=== PATIENT | male | born 1955 | race Caucasian/White ===

== ENCOUNTER 2020-05-18 12:43 | Emergency (ER) | payer OTHER, SELFPAY ==
[2020-05-18 12:57] VITALS: BP 185/94; PULSE 83; RESP 16; TEMP 35.9; O2SAT 99
--- NOTE | 2020-05-18 12:57 | ED.SKABFB ---
HPI - Skin/Abscess/Foreign Bdy General Chief complaint: Skin/Abscess/Foreign Body Stated complaint: knot on the back of neck Time Seen by Provider: 05/18/20 12:58 Source: patient and RN notes reviewed Mode of arrival: ambulatory Limitations: no limitations History of Present Illness HPI narrative: 65 year old male who presents to [facility] with complaints of red raised tender lesion to the back on his neck on the right side near his hair line for the past 4 days. Patient states that it started out small and has proceeded to enlarge and become red and tender, no drainage from site noted, tissue is semi firm and has increase pain with palpation. Patient denies any fever, chills or sweats, has applied ice and also taken some Tylenol for discomfort. MD complaint: lesion Onset (ago): day(s) (4) Location: neck Severity: moderate Severity scale (1-10): 4 Quality: aching Pain Consistency: constant Relieving factors: cold therapy and medication (Tylenol) Exacerbating factors: palpation and movement Context: none Associated symptoms: denies other symptoms Treatments prior to arrival: other (ice) Related Data Allergies Allergy/AdvReac Type Severity Reaction Status Date / Time No Known Allergies Allergy Verified 05/18/20 13:27 Review of Systems Review of Systems: Narrative: CONSTITUTIONAL: Denies fever, chills, or sweats. EYES: Denies visual changes, redness, or discharge. ENT: Denies rhinorrhea, congestion, sore throat, or otalgia. CARDIOVASCULAR: Denies chest pain, palpitations, or edema. RESPIRATORY: Denies cough or dyspnea. GASTROINTESTINAL: Denies abdominal pain, nausea, vomiting, or diarrhea. GENITOURINARY: Denies dysuria or hematuria. SKIN: Denies rash or itching.Red raised firm lesion to the back on his right neck for 4 days MUSCULOSKELETAL: Denies back pain, joint pain, or myalgia. NEUROLOGIC: Denies headache, numbness, or weakness. PSYCHIATRIC: Denies anxiety or depression. All systems reviewed & are unremarkable except as noted in HPI and below PMFSH Past Medical History Medical History (Updated 05/18/20 @ 15:13 by Melissa Wharton NP) No pertinent past medical history Surgical History Surgical History (Updated 05/18/20 @ 15:16 by Melissa Wharton NP) No pertinent past surgical history Social History Social History (Updated 05/18/20 @ 15:12 by Melissa Wharton NP) Smoking status: Never smoker Second hand tobacco smoke exposure: No Alcohol intake: never Substance use: never Living arrangements: with family Gender identity (if verbalized by the patient): Male Comments At time of signature, agree with nursing past medical, surgical, social history. There is no relevant family history pertinent to the presenting complaint Exam Narrative: Exam Narrative: GENERAL: Well-appearing, well-nourished, and in no acute distress. HEAD: Normocephalic, atraumatic. EYES: PERRLA and EOMI. ENT: Nares clear, no rhinorrhea or epistaxis. Mucous membranes moist. NECK: Supple.no lymphadenopathy CHEST: Clear to auscultation. No respiratory distress. HEART: Regular rate and rhythm. No murmur heard. Normal peripheral pulses. ABDOMEN: Soft, nontender, nondistended, normal active bowel sounds. EXTREMITIES: Normal range of motion. No edema. SKIN: Warm, dry, no rash. red raised area of tissue right posterior neck along hair line which measures 4cm X 3cm and is red and tender to palpation, no drainage noted, small center indentation noted with no scabbing or inflamed hair follicle,tissue firm without induration NEURO: No focal deficits. Alert and oriented x3. Course Vital Signs Vital signs: Vital Signs Temperature 35.9 C L 05/18/20 12:57 Pulse Rate 83 05/18/20 12:57 Respiratory Rate 16 05/18/20 12:57 Blood Pressure 185/94 H 05/18/20 12:57 Pulse Oximetry 99 05/18/20 12:57 Temperature 35.9 C L 05/18/20 12:57 Pulse Rate 83 05/18/20 12:57 Respiratory Rate 16 05/18/20 12:57 Blood Pressure 1
== END 2020-05-18 13:23 | disposition home or self-care (01) ==
PROVIDERS: Emergency Provider Registered Nurse
DX: L02.11 Cutaneous abscess of neck (principal)
CPT/HCPCS: 99213; G0463

== ENCOUNTER 2020-12-26 14:45 | Outpatient (CLI) | payer OTHER, SELFPAY ==
[2020-12-26 15:19] LABS: Alanine Aminotransferase 19 U/L (4-50); Albumin Level 4.4 g/dL (3.5-5.1); Alkaline Phosphatase 70 U/L (38-126); Anion Gap 7 mmol/L (8-16); Aspartate Amino Transferase 26 U/L (17-59); Bilirubin,Total 0.6 mg/dL (0.2-1.3); Blood Urea Nitrogen 22 mg/dL (9-20); Calcium 9.9 mg/dL (8.4-10.2); Carbon Dioxide 26 mmol/L (22-30); Chloride 106 mmol/L (98-107); Estimated Glomerular Filt Rate 47; Glucose 94 mg/dL (65-110); Potassium 4.5 mmol/L (3.4-5.0); Sodium 139 mmol/L (137-145)
[2020-12-26 15:39] LABS: Microalbumin Urine Random 20.1 mg/L (0-16.7)
[2020-12-26 15:40] LABS: Creatinine Urine 116.4 mg/dL; MALB Creatinine Ratio 17.3 mg/g (0-30)
== END 2020-12-26 14:46 | disposition home or self-care (01) ==
LOC: ANHLAB 14:48
PROVIDERS: PCP Internal Medicine; Visit Provider Internal Medicine
DX: I12.9 Hypertensive chronic kidney disease with stage 1 through stage 4 chronic kidney disease, or unspecified chronic kidney disease (principal); N18.9 Chronic kidney disease, unspecified
CPT/HCPCS: 36415; 80053; 82043; 84443

== ENCOUNTER → 2021-01-09 15:38 | Outpatient (CLI) | payer OTHER, SELFPAY ==
--- NOTE | ~2021-01-09 | US_ITS ---
EXAMINATION: US retroperitoneal comp DATE: 01/09/2021 15:56 INDICATION: Stage III chronic kidney disease. COMPARISON: None. FINDINGS: The right kidney measures 13.2 x 5.5 x 5.7 cm. The left kidney measures 10.4 x 5.6 x 5.1 cm. The kidn eys demonstrate normal echogenicity. Approximately 1 cm echogenic and shadowing calcification likely representing a renal stone at the lower pole of the left kidney. There is no hydronephrosis in either kidney. No stones identified. Diffuse mild bladder wall thickening likely due to partially decompre ssed state which limits evaluation. IMPRESSION: 1. Approximately 1 cm stone at the lower pole of the left kidney. Otherwise normal kidneys with no h ydronephrosis. 2. Diffuse mild bladder wall thickening likely due to decompressed state which limits evaluation. Reviewed, dictated and finalized at location B. IMPRESSION: 1. Approximately 1 cm stone at the lower pole of the left kidney. Otherwise no rmal kidneys with no hydronephrosis. 2. Diffuse mild bladder wall thickening likely due to decompressed state which limits evaluation.
== END ==
PROVIDERS: PCP Internal Medicine; Visit Provider Internal Medicine
DX: N18.31 Chronic kidney disease, stage 3a (principal)
CPT/HCPCS: 76770

== ENCOUNTER → 2023-01-23 14:51 | Outpatient (CLI) | payer OTHER, MEDICARE, SELFPAY ==
--- NOTE | ~2023-01-23 | XR_ITS ---
EXAMINATION: XR abdomen/kub 1V DATE: 01/23/2023 15:14 INDICATION: Unspecified abdominal pain. TECHNIQUE: A supine view of the abdomen on 2 radiographs was obtained. COMPARISON: CT abdomen and pelvis 09/30/2005 FINDINGS: There are no dilated loops of bowel. There are approximately 3 stones in right kidney measu ring up to 4 mm. There are 13 mm and 4 mm calcifications in the area of distal left ureter. IMPRESSION: 1. Normal bowel gas pattern. 2. Calcifications in the area of distal left ureter that may be ureteral stones. Consider noncontrast CT. 3. Right kidney stones. Reviewed, dictated and finalized at location E. IMPRESSION: 1. Normal bowel gas pattern. 2. Calcifications in the area of distal left ureter that may be ureteral stones . Consider noncontrast CT. 3. Right kidney stones.
--- NOTE | ~2023-01-23 | CT_ITS ---
Corrected Report Order # associated 01/24/2023 SLJ This report was recreated on 01/24/2023. Original report was signed by Edison Hope M.D. on 01/23/2023 15:43 CDT. EXAMINATION: CT abdomen pelvis wo con DATE: 01/23/2023 15:29 INDICATION: Abdominal pain. Hematuria. TECHNIQUE: Computed tomography (CT) of the abdomen and pelvis was performed without intravenous contrast. Automated exposure control and iterative reconstruction technique were employed. The dose-length product was 677.33 mGy- cm. COMPARISON: CT abdomen and pelvis 09/30/2005 FINDINGS: The visualized portions of the lung bases demonstrate mild atelectasis. No pleural effusion. The heart size is normal. No pericardial effusion. The liver, gallbladder, spleen, pancreas, and adrenal glands are normal. There are approximately 8 stones in right kidney measuring up to 5 mm. There is a 12 mm cyst in left kidney. There is moderate atrophy of left kidney. There is severe left hydronephrosis and hydroureter. There are 11 mm and 4 mm stones in distal left ureter. The prostate is mildly enlarged. There is prominent fat in left inguinal canal that may be a hernia. There is diverticulosis of the colon without evidence of diverticulitis. The appendix is normal. There is an umbilical hernia containing fat. There are no pathologically enlarged lymph nodes. There is no free intraperitoneal fluid. There is severe lower lumbar spondylosis. There is mild chronic anterior wedging of T12 vertebral body. IMPRESSION: 1. 11 mm and 4 mm stones in distal left ureter with severe left hydronephrosis and hydroureter and moderate left kidney atrophy. 2. Nonobstructing right kidney stones. Reviewed, dictated and finalized at location E. MTDD
== END ==
PROVIDERS: PCP Nurse Practitioner Family; Visit Provider Nurse Practitioner Family
DX: R10.9 Unspecified abdominal pain (principal); R39.9 Unspecified symptoms and signs involving the genitourinary system; N20.2 Calculus of kidney with calculus of ureter
CPT/HCPCS: 74018; 74176

== ENCOUNTER 2023-02-13 13:10 | Outpatient (CLI) | payer OTHER, MEDICARE, SELFPAY ==
--- NOTE | 2023-02-13 13:22 | ECG_ITS ---
Measurements Intervals Ord Rate: 73 P: 48 AL: 159 QRS: -12 QRSD: 151 T: 89 QT: 410 QTc: 452 Interpretive Statements SINUS RHYTHM LEFT BUNDLE BRANCH BLOCK ABNORMAL ECG NO PREVIOUS ECG AVAILABLE FOR COMPARISON Electronically Signed On 02-13-2023 13:31:26 CDT by Santos Kulkarni D.O.
[2023-02-13 13:49] LABS: Prothrombin Time 13.5 Seconds (11.1-14.7)
[2023-02-13 13:50] LABS: Anion Gap 4 mmol/L (8-16); Blood Urea Nitrogen 23 mg/dL (9-20); Calcium 9.3 mg/dL (8.4-10.2); Carbon Dioxide 31 mmol/L (22-30); Chloride 107 mmol/L (98-107); Estimated Glomerular Filt Rate 47; Glucose 86 mg/dL (65-110); Partial Thromboplastin Time 25.9 SECONDS (22.3-36.8); Sodium 142 mmol/L (137-145)
== END 2023-02-13 13:11 | disposition home or self-care (01) ==
PROVIDERS: Anesthesiology; PCP Family Medicine; Visit Provider Urology
DX: Z01.818 Encounter for other preprocedural examination (principal); I44.7 Left bundle-branch block, unspecified; R94.31 Abnormal electrocardiogram [ECG] [EKG]; I12.9 Hypertensive chronic kidney disease with stage 1 through stage 4 chronic kidney disease, or unspecified chronic kidney disease; N18.9 Chronic kidney disease, unspecified
CPT/HCPCS: 36415; 80048; 85610; 85730; 93005

== ENCOUNTER 2023-02-20 00:46 | Day surgery (SDC) | payer OTHER, MEDICARE, SELFPAY ==
[2023-02-12 14:57] VITALS: BMI 28.4
--- NOTE | 2023-02-12 15:15 | PC.NURSE ---
Report to the Outpatient Waiting Room, entrance under the green pavilion located off [facility], at time ___11:30AM____ on date __02/20/23 . Planned Procedure Time: __1:30PM . Time changes happen often and if your time is changed the preop area will call you the afternoon before. - You and your visitor will be asked to self-screen and do not enter if you have any COVID symptoms. - A mask is optional within the hospital at this time. Patients may have clear liquids (water, carbonated beverages, clear teas, apple juice) until 3 hours prior to surgery with a maximum of 20 ounces. - No food from midnight until time of surgery. Take the following medications with a SIP of water the morning of surgery: __NONE DO NOT STOP ANY OF YOUR OTHER PRESCRIPTION MEDICATIONS PRIOR TO SURGERY ?EXCEPT THE FOLLOWING Medications to discontinue per physician ___NONE Date to take last dose Please no make-up, nail divehi, hairspray, perfume, deodorant, or body powder the day of surgery. No jewelry (including any body piercings) or valuables the day of surgery, leave them at home. Please take a shower or bath the night before, or the morning of, surgery with an antibacterial soap. Wear comfortable, loose fitting clothing. Children are encouraged to wear pajamas. - Jewelry must be removed prior to entering the operating room. Rings and piercings that are not removed may be cut off. - The hospital will not accept responsibility for valuables. - Please leave all valuables, including medications, at home the day of surgery. If you are going home after surgery, a licensed star route mail driver must drive you home. - NO public transportation without another adult if you receive anesthesia. - We recommend that an adult stay with you for 24 hours following discharge. - We also recommend that you do not drive, make important decision, drink alcoholic beverages, or take any drugs that were not prescribed by your health care provider for at least 24 hours after your discharge time. Follow any additional instructions given to you from your surgeon. If you or anyone in your household have experienced Covid symptoms in the past week, please notify your surgeon or the nurse liaison at the phone number below for possible testing. Telephone instructions given to __PATIENT and asked if any additional questions and then verbalized understanding. Patient advised to call surgeon office or pre surgery nurse liaison [phone] if any additional questions.
[2023-02-20] VITALS (13 sets, daily range): BP systolic 134–156; BP diastolic 64–102; PULSE 65–88; RESP 16–24; TEMP 36.4–36.9; O2SAT 98–100
--- NOTE | ~2023-02-20 | XR_ITS ---
EXAMINATION: XR stent kub - surgery DATE: 02/20/2023 13:43 INDICATION: Stone extraction and left ureteral stent placement TECHNIQUE: 2 fluoroscopic images of the abdomen and pelvis were obtained during procedure performed mariely Banks. Radiologist was not present for the imaging or procedure. The amount of fluoroscopy nataly e used during this procedure was 0.5 minutes. COMPARISON: CT abdomen pelvis dated 01/23/2023 FINDINGS: There is a left internal ureteral stent with loops formed in the expected positions of the bladder an d left renal pelvis. Distal tip of a likely cystoscope is seen in the central pelvis on the second im age. IMPRESSION: 1. Left internal ureteral stent in expected position on the provided images. This is reportedly been removed during procedure. Correlate with procedure note for further detail. Reviewed, dictated and finalized at location A. IMPRESSION: 1. Left internal ureteral stent in expected position on the provided images. Th is is reportedly been removed during procedure. Correlate with procedure note f or further detail.
--- NOTE | 2023-02-20 06:17 | WPDHPUPDATE1 ---
History and Physical Update Update Date/Time: 02/20/23 06:17 History and Physical has been reviewed, including an updated exam of the patient. There are NO changes in the patient's condition. Risks, benefits, and alternatives have been discussed and questions answered. Patient agrees to proceed with procedure.
[2023-02-20] MEDS: LACTATED RINGERS 1,000 ML 30 ML IV CONT (11:21)
--- NOTE | 2023-02-20 11:34 | WPDANESEPPF ---
Anes - Initial Pre Proc Eval Procedure: Operation Date: 02/20/23 13:30 Proposed Procedures p Cystoscopy, Left Ureteroscopy, Left Retrograde Pyelogram, Possible Left Stone Extraction, Possible Left Stent Placement, Possible Holmium Laser - Gigi Banks MD Date/Time: 02/20/23 11:34 Surgeon: Giig Banks MD Pre Op Diagnosis: ureteral stone Patient Data Age: 67 Gender: M Height: 1.83 m Weight: 97.2 kg Last Vital Signs Temp 36.9 C 02/20/23 10:59 Pulse 88 02/20/23 10:59 Resp 20 02/20/23 10:59 BP 149/82 H 02/20/23 10:59 Pulse Ox 98 02/20/23 10:59 O2 Del Method Room Air 02/20/23 10:59 Allergies Allergy/AdvReac Type Severity Reaction Status Date / Time No Known Allergies Allergy Verified 02/20/23 10:58 Home Medications Medication Instructions Recorded Confirmed Type hydrocodone 5 mg-acetaminophen 325 1 tablet PO Q6H PRN pain #20 tabs 01/23/23 02/12/23 Rx mg tablet tamsulosin 0.4 mg capsule (Flomax) 0.4 mg PO QHS #14 caps 01/23/23 02/12/23 Rx losartan 50 mg tablet See Rx Instructions .Route 02/17/23 02/20/23 Rx .COMPLEX #90 tabs simvastatin 20 mg tablet See Rx Instructions .Route 02/17/23 02/20/23 Rx .COMPLEX #90 tabs Patient hx anesthesia problems: none Family hx anesthesia problems: none Results Review: All pre-operative results and documents have been reviewed as part of the pre-operative evaluation. [facility] Past Medical History Medical History (Updated 02/20/23 @ 11:34 by Sonido Lobo MD) COVID-19 vaccine series started Family History Family History Father Hypertension Dementia Sibling Hypertension Heart problem Social History Social History Social History: Smoking status: Never smoker Second hand tobacco smoke exposure: No Alcohol intake: never Substance use: never Substance use type: does not use Lack of Transportation: No Lack of Food: Never True Current Housing: I Have Housing Concerned About Future Housing: No Difficulty Paying Gas/Electric Bills: No Difficulty Paying for Meds: No Currently Unemployed: No Education: High School Diploma/GED Difficulty w/ Childcare or Family Care: No Living arrangements: with family Additional living arrangements comments: Occupation/Education: occupation Gender identity (if verbalized by the patient): Male Sexual Orientation (if Verbalized by the Patient): Straight or Heterosexual Spiritual care concerns: No Anes - Eval Final PreProcedure Day of Procedure 02/20/23 11:34 Patient weight: overweight Heart: regular rate and rhythm Lungs: clear to auscultation Airway: Mallampati scale class II Neurological: alert and oriented Last oral intake: >/= 8 hours ASA classification: III Emergent: no Anesthetic plan: proceed Anesthesia type and monitoring: general LMA and standard monitoring Results Review: All pre-operative results and documents have been reviewed as part of the pre-operative evaluation. Informed Consent: The patient's anesthetic plan and its attendant risks and benefits were discussed with the patient/family/POA. Questions were solicited and answers provided to the satisfaction of the patient/family/POA.
[2023-02-20] MEDS: ceFAZolin 2 GM/D5W 50 ML 2 GM/50 ML BAG IVPB (12:37)
[2023-02-20] MEDS: LIDOCAINE HCL 2% GEL UROJET 10 ML PKG MUCOUS MEM (12:50)
--- NOTE | 2023-02-20 13:57 | W.PM.PROC2 ---
Procedure Note - Detailed Date of Procedure 02/20/23 Pre-op Diagnosis Large left ureteral stone Post-op Diagnosis Same Procedure Performed Cystoscopy, left ureteroscopy with laser lithotripsy, stone extraction and stent placement Surgeon Gigi Banks MD Anesthesia General Description of Procedure patient is brought to the operative suite was prepped draped in routine sterile fashion while dorsal lithotomy position after the uneventful induction of a general anesthetic. Cystoscopy is undertaken with a 19 F rigid cystoscope. He has moderate lateral lobe hyperplasia with a moderate-sized median lobe. Bladder was slightly trabeculated. No intravesical foreign body neoplasm. Again seen fluoroscopy he has a very large, 15 mm triangular shaped stone impacted in his left intramural ureter. This makes placement of a ureteral guidewire very challenging and not possible until I 1st started the fracture the stone with a 272 micron holmium laser fiber. Once I could identify a more proximal lumen of the ureter I placed a 0.035 in glidewire. I then completed laser lithotripsy with a semi-rigid ureteral scope and holmium laser. The ureteral orifice was very edematous making re-intubation with ureteral scope challenging. After 4 or 5 passes and extracting the largest of the fragmented pieces I opted simply place a 6 F variable length ureteral stent and see if the remaining pieces passed spontaneously. Patient tolerated the procedure well was taken recovery room good condition Drains Yes Packing No Pathology Yes Complications No immediate complications Condition Stable
--- NOTE | 2023-02-20 15:22 | SUR.PHASEII ---
1440 Urine output bloody with clots. Dr. Banks notified at bedside.
[2023-02-20] MEDS: LACTATED RINGERS 1,000 ML 150 ML IV CONT (15:57)
--- NOTE | 2023-02-20 16:29 | SUR.PHASEII ---
1620 Urine output 125 still bloody with small clots. Dr. Banks notified and at bedside. Pt on bag of LR.
--- NOTE | 2023-02-20 16:34 | SUR.PHASEII ---
Bladder scan showed 40ml of urine.
--- NOTE | 2023-02-20 17:05 | SUR.PHASEII ---
DR. OCASIO SPOKE WITH PATIENT AND LOUIE'D FOR PATIENT TO GO HOME.
== END 2023-02-20 17:13 | disposition home or self-care (01) ==
PROVIDERS: PCP Family Medicine; Visit Provider Urology
PROC: (CPT 52352; principal; 2023-02-20 13:30)
DX: N20.1 Calculus of ureter (principal)
CPT/HCPCS: 52356; 36415; 80048; 82365; 85610; 85730; 88300; 93005; C1769; C2617; J0690; J1100; J1885; J2250; J2405; J2704; J3010; J7120

== ENCOUNTER 2023-07-18 09:07 | Outpatient (CLI) | payer OTHER, MEDICARE, SELFPAY ==
--- NOTE | ~2023-07-18 | CT_ITS ---
EXAMINATION: CT abdomen pelvis wo con DATE: 07/18/2023 09:22 INDICATION: Unspecified abdominal pain. Right flank pain. TECHNIQUE: Computed tomography (CT) of the abdomen and pelvis was performed without intravenous contr ast. Automated exposure control and iterative reconstruction technique were employed. The dose-length product was 808.76 mGy-cm. COMPARISON: 01/23/2023 FINDINGS: Mild dependent atelectasis in the bilateral lower lobes with small pneumatocele in the left lower lob e. Heart size is normal. No pericardial or pleural effusion. Small sliding-type hiatal hernia. Again seen are couple low-attenuation likely hepatic cyst. Gallbladder, spleen, pancreas and bilateral adre nal glands are normal. Unchanged moderate atrophy of the left kidney with 12 mm exophytic cyst at the upper pole. Bilateral nephrolithiasis. This includes a 5 mm obstructing stone at the distal most right ureter within 1 cm o f the ureterovesicular junction which results in mild right hydroureteronephrosis. There are also two , 1 mm stones in the distalmost left ureter with mild left hydronephrosis. There are at least 7 addit ional stones in the right kidney, the largest measuring 5-6 mm. Fat-containing umbilical hernia. Moderate diverticulosis with sigmoid and distal descending colon pre dominance and without adjacent comparison to suggest diverticulitis. Small bowel and appendix are nor mal. Bladder is unremarkable. Prostatomegaly. No free intraperitoneal gas or fluid. No pathologically enlarged abdominal or pelvic lymphadenopathy. Severe spondylosis at the lumbosacral junction with mi ld spondylosis more cephalad lumbar and lower thoracic spine. Chronic mild likely physiologic anterio r wedging at T11 and T12. IMPRESSION: 1. Bilateral urolithiasis with obstructing 5 mm stone at the distalmost right ureter with mild right hydroureteronephrosis and a couple likely at least partially obstructing 1 mm stones at the distalmos t left ureter with mild left hydronephrosis. Reviewed, dictated and finalized at location B. E[employer] SUPERVISOR IMPRESSION: 1. Bilateral urolithiasis with obstructing 5 mm stone at the distalmost right u reter with mild right hydroureteronephrosis and a couple likely at least partia lly obstructing 1 mm stones at the distalmost left ureter with mild left hydron ephrosis.
== END 2023-07-18 09:08 ==
LOC: MICIMG 09:08
PROVIDERS: PCP Family Medicine; Visit Provider Nurse Practitioner Family
DX: R10.9 Unspecified abdominal pain (principal); N20.0 Calculus of kidney
CPT/HCPCS: 74176

== ENCOUNTER 2023-07-19 08:30 | Outpatient (CLI) | payer OTHER, MEDICARE, SELFPAY ==
[2023-07-19 08:50] LABS: Appearance Urine Clear (Clear); Bilirubin Urine Negative (Negative); Blood Urine Negative (Negative); Color Urine Yellow (Yellow); Glucose Urine UA Negative (Negative); Ketones Urine Negative (Negative); Leukocyte Esterase Ur Negative LEU/UL (NEGATIVE); Nitrate Urine Negative (Negative); Protein Urine Negative (Negative); Specific Grav Ur 1.011 (1.001-1.035); Urobilinogen Urine 0.2 mg/dL (<2.0); pH Urine 5.5 (5.0-9.0)
[2023-07-19 09:06] LABS: Add Urine Microscopic? NO
== END 2023-07-19 08:31 | disposition home or self-care (01) ==
PROVIDERS: PCP Family Medicine; Visit Provider Nurse Practitioner Family
DX: R30.0 Dysuria (principal)
CPT/HCPCS: 81003; 87086

== ENCOUNTER 2024-01-02 01:55 | Day surgery (SDC) | payer OTHER, MEDICARE, SELFPAY ==
[2023-12-16 13:34] VITALS: BMI 27.6
[2024-01-02 09:09] VITALS: BP 151/86; PULSE 88; RESP 20; TEMP 36.6; O2SAT 99; BMI 27.9
--- NOTE | 2024-01-02 09:11 | P.PNAN_ITS ---
Anes - Initial Pre Proc Eval Procedure: Operation Date: 01/02/24 10:30 Proposed Procedures p Colonoscopy - Gelacio Bello MD Date/Time: 01/02/24 09:11 Surgeon: Gelacio Bello MD Pre Op Diagnosis: Other fecal abnormalities Patient Data Age: 68 Gender: M Height: 1.83 m Weight: 93.5 kg Last Vital Signs Temp 36.6 C 01/02/24 09:09 Pulse 88 01/02/24 09:09 Resp 20 01/02/24 09:09 BP 151/86 H 01/02/24 09:09 Pulse Ox 99 01/02/24 09:09 O2 Del Method Room Air 01/02/24 09:09 Allergies Allergy/AdvReac Type Severity Reaction Status Date / Time No Known Allergies Allergy Verified 01/02/24 09:08 Home Medications Medication Instructions Recorded Confirmed Type colchicine 0.6 mg tablet 0.6 mg PO DAILY #90 tabs 10/26/23 01/02/24 Rx losartan 50 mg tablet See Rx Instructions .Route 11/14/23 01/02/24 Rx .COMPLEX #90 tabs simvastatin 20 mg tablet See Rx Instructions .Route 12/15/23 01/02/24 Rx .COMPLEX #90 tabs Patient hx anesthesia problems: none Family hx anesthesia problems: none Results Review: All pre-operative results and documents have been reviewed as part of the pre- operative evaluation. [facility] Past Medical History Medical History (Updated 01/02/24 @ 09:12 by Sonido Lobo MD) Back pain Benign essential HTN CKD (chronic kidney disease) Dyslipidemia Gout Overweight (BMI 25.0-29.9) Family History Family History Father Hypertension Dementia Sibling Hypertension Heart problem Social History Social History Social History: Smoking status: Never smoker Second hand tobacco smoke exposure: No Alcohol intake: current Substance use: never Substance use type: does not use Lack of Transportation: No Lack of Food: Never True Current Housing: I Have Housing Concerned About Future Housing: No Difficulty Paying Gas/Electric Bills: No Difficulty Paying for Meds: No Currently Unemployed: No Education: High School Diploma/GED Difficulty w/ Childcare or Family Care: No Living arrangements: with roommate(s) Additional living arrangements comments: Occupation/Education: occupation Gender identity (if verbalized by the patient): Male Sexual Orientation (if Verbalized by the Patient): Straight or Heterosexual Spiritual care concerns: No Anes - Eval Final PreProcedure Day of Procedure 01/02/24 09:11 Patient weight: overweight Heart: regular rate and rhythm Lungs: clear to auscultation Airway: Mallampati scale class II Neurological: alert and oriented Last oral intake: >/= 8 hours ASA classification: III Emergent: no Anesthetic plan: proceed Anesthesia type and monitoring: general GIVS and standard monitoring Results Review: All pre-operative results and documents have been reviewed as part of the pre- operative evaluation. Informed Consent: The patient's anesthetic plan and its attendant risks and benefits were discussed with the patient/family/POA. Questions were solicited and answers provided to the satisfaction of the patient/family/POA.
--- NOTE | 2024-01-02 09:15 | PM.HPGS ---
History of Present Illness History of Present Illness Consent: Risks, benefits, and alternatives have been discussed and questions answered. Patient agrees to proceed with procedure. Chief complaint: Other fecal abnormalities Narrative: Jurgen Lewis is a 68 year old male here for first colonoscopy, + cologuard Review of Systems Review of Systems: All systems reviewed & are unremarkable except as noted in HPI and below PMFSH Past Medical History Medical History (Updated 01/02/24 @ 09:12 by Sonido Lobo MD) Back pain Benign essential HTN CKD (chronic kidney disease) Dyslipidemia Gout Overweight (BMI 25.0-29.9) Family History Family History Father Hypertension Dementia Sibling Hypertension Heart problem Social History Social History Social History: Smoking status: Never smoker Second hand tobacco smoke exposure: No Alcohol intake: current Substance use: never Substance use type: does not use Lack of Transportation: No Lack of Food: Never True Current Housing: I Have Housing Concerned About Future Housing: No Difficulty Paying Gas/Electric Bills: No Difficulty Paying for Meds: No Currently Unemployed: No Education: High School Diploma/GED Difficulty w/ Childcare or Family Care: No Living arrangements: with roommate(s) Additional living arrangements comments: Occupation/Education: occupation Gender identity (if verbalized by the patient): Male Sexual Orientation (if Verbalized by the Patient): Straight or Heterosexual Spiritual care concerns: No Meds Home Medications and Allergies Home Medications Medication Instructions Recorded Confirmed Type colchicine 0.6 mg tablet 0.6 mg PO DAILY #90 tabs 10/26/23 01/02/24 Rx losartan 50 mg tablet See Rx Instructions .Route 11/14/23 01/02/24 Rx .COMPLEX #90 tabs simvastatin 20 mg tablet See Rx Instructions .Route 12/15/23 01/02/24 Rx .COMPLEX #90 tabs Allergies Allergy/AdvReac Type Severity Reaction Status Date / Time No Known Allergies Allergy Verified 01/02/24 09:08 Vital Signs Vital Signs - 24 hr 01/02/24 09:09 Temperature 98 F Pulse Rate 88 Respiratory Rate 20 Blood Pressure 151/86 H Pulse Oximetry 99 Oxygen Delivery Room Air Exam Const: General: comfortable and no acute distress HENMT: Face/Nose/Sinus: Normal nares present Eyes: General: appearance normal, both eyes and all related structures Neck: Neck: no JVD Resp: Auscultation: clear to auscultation bilaterally Cardio: Rate: regular rate Rhythm: regular rhythm GI: Inspection: non-distended GI Palp: Yes Soft to palpation Skin: General skin exam: normal color Neuro: General: gait normal Speech: normal speech Extrem: General: normal to inspection Psych: Mental Status: mental status grossly normal Assessment and Plan Assessment and plan (1) Positive colorectal cancer screening using Cologuard test: Code(s): R19.5 - Other fecal abnormalities Status: Acute Assessment and Plan: colonoscopy
[2024-01-02] MEDS: LACTATED RINGERS 1,000 ML 150 ML IV CONT (09:16)
[2024-01-02 09:34] VITALS: BP 130/73; PULSE 86; RESP 21; O2SAT 95
[2024-01-02 09:44] VITALS: BP 116/81; PULSE 84; RESP 18; O2SAT 97
[2024-01-02 09:54] VITALS: BP 134/81; PULSE 67; RESP 15; O2SAT 97
== END 2024-01-02 10:05 | disposition home or self-care (01) ==
PROVIDERS: PCP Family Medicine; Visit Provider Internal Medicine Gastroenterology
PROC: 0DJD8ZZ Inspection of Lower Intestinal Tract, Via Natural or Artificial Opening Endoscopic (ICD-10-PCS; CPT 45378; principal; 2024-01-02 10:30)
DX: R19.5 Other fecal abnormalities (principal); D12.4 Benign neoplasm of descending colon; K57.30 Diverticulosis of large intestine without perforation or abscess without bleeding; K64.8 Other hemorrhoids; N18.9 Chronic kidney disease, unspecified; I12.9 Hypertensive chronic kidney disease with stage 1 through stage 4 chronic kidney disease, or unspecified chronic kidney disease; E78.5 Hyperlipidemia, unspecified
CPT/HCPCS: 45385; 88305; J2704; J7120

== ENCOUNTER 2024-06-28 09:38 | Observation (INO) | payer MEDICARE, SELFPAY ==
[2024-06-28] VITALS (23 sets, daily range): BP systolic 96–143; BP diastolic 50–88; PULSE 89–112; RESP 13–27; TEMP 36.2–37.2; O2SAT 93–100
--- NOTE | ~2024-06-28 | XR_ITS ---
EXAMINATION: XR chest 2V DATE: 06/28/2024 10:25 INDICATION: Chest pain TECHNIQUE: PA and lateral views of the chest were obtained. COMPARISON: None FINDINGS: The lungs are clear with no focal airspace opacities, pulmonary edema, pleural effusion or pneumothor ax. The cardiomediastinal silhouette is normal. Visualized bones and soft tissues are unremarkable. IMPRESSION: 1. No acute cardiopulmonary disease. Reviewed, dictated and finalized at location A. L SERVICES SUPERVISOR
--- NOTE | 2024-06-28 09:39 | ECG_ITS ---
Test Date: 2024-06-28 09:42:17 Measurements Intervals [place] Rate: 107 P: 43 [place]: 147 QRS: -11 QRSD: 139 T: 114 QT: 351 QTc: 470 Interpretive Statements SINUS TACHYCARDIA LEFT BUNDLE BRANCH BLOCK ABNORMAL ECG No previous ECG available for comparison Electronically Signed On 06-28-2024 09:57:54 BUTTON MAKER AND INSTALLER by Santos Kulkarni D.O.
[2024-06-28] MEDS: ASPIRIN 81 MG CHEWABLE TABLET 324 MG PO (09:58)
[2024-06-28 10:02] LABS: Basophils Percent Auto 0.1 % (0.2-1.2); Eosinophils Absolute Auto 0.2 K/mm3 (0-0.3); Eosinophils Percent Auto 2.2 % (0-4.4); Hematocrit 44.4 % (42.0-52.0); Immature Granulocyte Absolute 0.05 K/mm3 (0.00-0.031); Immature Granulocyte Percent A 0.5 % (0-0.5); Mean Corpuscular HGB Conc 33.8 g/dl (32-36); Mean Corpuscular Hemoglobin 29.4 pg (26-34); Mean Corpuscular Volume 86.9 fl (80-100); Mean Platelet Volume 8.8 fl (7.4-10.4); Monocytes Absolute Auto 0.5 K/mm3 (0.1-0.6); Monocytes Percent Auto 5.2 % (2.6-8.5); Neutrophils Absolute Auto 8.7 K/mm3 (1.3-6.7); Platelet Count Result 174 k/mm3 (150-375); Red Blood Count 5.11 M/mm3 (4.6-6.20); Red Cell Distribution Width 13.2 % (11.5-14.5); White Blood Count 9.9 K/mm3 (4.5-10.0)
[2024-06-28 10:11] LABS: Alanine Aminotransferase 41 U/L (6-50); Albumin Level 4.1 g/dL (3.5-5.1); Alkaline Phosphatase 94 U/L (38-126); Anion Gap 9 mmol/L (4-12); Aspartate Amino Transferase 41 U/L (17-59); Bilirubin,Total 0.7 mg/dL (0.2-1.3); Blood Urea Nitrogen 22 mg/dL (9-20); Carbon Dioxide 26 mmol/L (22-30); Chloride 107 mmol/L (98-107); Estimated CRCL calculation 56 ml/min; Estimated Glomerular Filt Rate 58; Glucose 116 mg/dL (65-110); Lipase 84 U/L (23-300); Potassium 4.2 mmol/L (3.4-5.0); Sodium 142 mmol/L (137-145)
--- NOTE | 2024-06-28 10:16 | ED_ITS ---
HPI - Chest Pain General Chief Complaint: Chest Pain <Carolin Schreiber PA-C - Last Filed: 06/28/24 19:09> Stated Complaint: chest pain since 8am <Carolin Schreiber PA-C - Last Filed: 06/28/24 19:09> Time Seen by Provider: 06/28/24 10:03 <Carolin Schreiber PA-C - Last Filed: 06/28/24 19:09> Source: patient <Carolin Schreiber PA-C - Last Filed: 06/28/24 19:09> Mode of arrival: ambulatory <Carolin Schreiber PA-C - Last Filed: 06/28/24 19:09> Limitations: no limitations <Carolin Schreiber PA-C - Last Filed: 06/28/24 19:09> History of Present Illness HPI narrative: This is a 69-year-old male that presents to the emergency department for left-sided chest pain. Ongoing over the last couple of hours. The pain has been fairly constant, but intensity varying. Reports associated nausea. No history of CAD. He does report family history of [place]. He does not believe he has had a stress test. Denies shortness of breath, lower extremity edema. <Carolin Schreiber PA-C - Last Filed: 06/28/24 19:09> Related Data Allergies/Adverse Reactions: Allergies Allergy/AdvReac Type Severity Reaction Status Date / Time No Known Allergies Allergy Verified 06/28/24 10:01 <Carolin Schreiber PA-C - Last Filed: 06/28/24 19:09> Review of Systems 2 Review of Systems: CONSTITUTIONAL: Denies fever CARDIOVASCULAR: Reports chest pain. Denies palpitations, or edema. RESPIRATORY: Denies dyspnea. GASTROINTESTINAL: Reports nausea <Carolin Schreiber PA-C - Last Filed: 06/28/24 19:09> All systems reviewed & are unremarkable except as noted in HPI and below < Carolin Schreiber PA-C - Last Filed: 06/28/24 19:09> PMFSH Past Medical History Medical History: Medical History Left bundle branch block Vitamin D deficiency Kidney stones Chronic kidney disease, stage 3 Benign essential hypertension Gout Overweight (BMI 25.0-29.9) Dyslipidemia <Carolin Schreiber PA-C - Last Filed: 06/28/24 19:09> Surgical History Surgical History: Surgical History History of lithotripsy History of cystoscopy History of colonoscopy with polypectomy (12/2023) <Carolin Schreiber PA-C - Last Filed: 06/28/24 19:09> Family History Family History: Family History Father Hypertension Dementia Sibling Hypertension Heart problem <Carolin Schreiber PA-C - Last Filed: 06/28/24 19:09> Social History Social History: Social History (Updated 06/28/24 @ 19:36 by Tracy Ocasio PA-C) Social History: Surrogate medical decision maker: Galilea Lewis, spouse. Code status: Full code. Smoking status: Never smoker Second hand tobacco smoke exposure: No Alcohol intake: never Substance use: never Substance use type: does not use Do You Feel Safe in your Home?: Yes Lack of Transportation: No Lack of Food: Never True Current Housing: I Have Housing Concerned About Future Housing: No Difficulty Paying Gas/Electric Bills: No Difficulty Paying for Meds: No Currently Unemployed: No Education: High School Diploma/GED Difficulty w/ Childcare or Family Care: No Living arrangements: with family Additional living arrangements comments: Lives with in [place]. Occupation/Education: occupation Additional occupation/education comments: Retired from working in IT at [email or web address]. Spiritual care concerns: No <Carolin Schreiber PA-C - Last Filed: 06/28/24 19:09> Exam 2 Narrative: GENERAL: Uncomfortable, well-nourished, and in no acute distress. HEAD: Normocephalic, atraumatic. EYES: EOMI. NECK: Supple. No adenopathy or masses. No JVD CHEST: Clear to auscultation. No respiratory distress. No wheezes rales or rhonchi HEART: Regular rate and rhythm. No murmur heard. Normal peripheral pulses. ABDOMEN: Soft, nontender, nondistended, normal active bowel sounds. EXTREMITIES: Normal range of motion. No edema. SKIN: Warm, dry, no rash. NEURO: No focal deficits. Alert and oriented x3. PSYCH: Normal mood and affect <Carolin Schreiber PA-C - Last Filed: 06/28/24 19:09> Course Course Emergency Course: Patient and family updated on workup and recommendation for admission < Carolin Schreiber PA-C - Last Filed: 06/28/24 19:09> COMMUNITY HEALTH OUTREACH WORKER/PA Physician Supervision For this patient encounter, I reviewed the COMMUNITY HEALTH OUTREACH WORKER or PA documentation, treatment plan, and medical decision making; and I had [id number] time with this patient. <Dillan Apodaca MD - Last Filed: 06/28/24 19:38> Consultations Consultation #1: Spoke with hospitalist about patient and workup who accepts admission < Carolin Schreiber PA-C - Last Filed: 06/28/24 19:09> Date: 06/28/24 <Carolin Schreiber PA-C - Last Filed: 06/28/24 19:09> Consultation #2: Spoke with cardiology who will consult <Carolin Schreiber PA-C - Last Filed: 06/28/24 19:09> Date: 06/28/24 <Carolin Schreiber PA-C - Last Filed: 06/28/24 19:09> Vital Signs Vital signs: Vital Signs Temperature 98.8 F 06/28/24 09:46 Pulse Rate 112 H 06/28/24 09:46 Respiratory Rate 20 06/28/24 09:46 Blood Pressure 128/86 06/28/24 09:46 Pulse Oximetry 100 06/28/24 09:46 Oxygen Delivery Room Air 06/28/24 09:46 Temperature 98.8 F 06/28/24 09:46 Pulse Rate 96 06/28/24 19:15 Respiratory Rate 18 06/28/24 19:15 Blood Pressure 124/64 06/28/24 19:15 Pulse Oximetry 98 06/28/24 19:15 Oxygen Delivery Room Air 06/28/24 19:15 <Carolin Schreiber PA-C - Last Filed: 06/28/24 19:09> Vital Signs Temperature 98.8 F 06/28/24 09:46 Pulse Rate 112 H 06/28/24 09:46 Respiratory Rate 20 06/28/24 09:46 Blood Pressure 128/86 06/28/24 09:46 Pulse Oximetry 100 06/28/24 09:46 Oxygen Delivery Room Air 06/28/24 09:46 Temperature 98.8 F 06/28/24 09:46 Pulse Rate 96 06/28/24 19:15 Respiratory Rate 18 06/28/24 19:15 Blood Pressure 124/64 06/28/24 19:15 Pulse Oximetry 98 06/28/24 19:15 Oxygen Delivery Room Air 06/28/24 19:15 <Dillan Apodaca MD - Last Filed: 06/28/24 19:38> MDM - Chest Pain MDM Narrative Medical decision making narrative: Patient presents the emergency department for chest pain ongoing since this morning. Tachycardic upon arrival, this improved with management pain. CBC and metabolic panel without concerning findings. EKG shows a left bundle branch block, which is chronic for patient. His baseline and 3 hour troponin are negative. D-dimer is not elevated. Chest x-ray without acute cardiopulmonary abnormality. His heart score is 6. Will consult cardiology and hospitalist for admission for further evaluation <Carolin Schreiber PA-C - Last Filed: 06/28/24 19:09> Differential Diagnosis Differential diagnosis: Likely stable angina, unstable angina pectoris, atypical chest pain, st elevation myocardial infarction, costochondritis and other (PE) <Carolin Schreiber PA-C - Last Filed: 06/28/24 19:09> Lab Data Attestation: I reviewed the patient's lab results. <Carolin Schreiber PA-C - Last Filed: 06/28/24 19:09> Result diagrams: 06/28/24 09:52 06/28/24 09:52 <VIOLET Mckeon Last Filed: 06/28/24 19:09> Labs: Lab Results 06/28/24 Range/Units 09:52 WBC 9.9 (4.5-10.0) K/mm3 RBC 5.11 (4.6-6.20) M/mm3 Hgb 15.0 (14.0-18.0) g/dL Hct 44.4 (42.0-52.0) % MCV 86.9 (80-100) fl MCH 29.4 (26-34) pg MCHC 33.8 (32-36) g/dl RDW 13.2 (11.5-14.5) % Plt Count 174 (150-375) k/mm3 MPV 8.8 (7.4-10.4) fl Immature Gran % (Auto) 0.5 (0-0.5) % Neut % (Auto) 88.0 H (45.5-73.1) % Lymph % (Auto) 4.0 L (18.3-44.2) % [place] % (Auto) 5.2 (2.6-8.5) % Eos % (Auto) 2.2 (0-4.4) % Baso % (Auto) 0.1 L (0.2-1.2) % Lymph # (Auto) 0.40 L (0.9-3.2) K/mm3 [place] # (Auto) 0.5 (0.1-0.6) K/mm3 Eos # (Auto) 0.2 (0-0.3) K/mm3 Baso # (Auto) 0.0 (0.0-0.1) K/mm3 Abs Immat Gran (auto) 0.05 H (0.00-0.031) K/mm3 Absolute Neuts (auto) 8.7 H (1.3-6.7) K/mm3 Absolute Nucleated RBC 0.000 (0.0-0.012) K/mm3 Nucleated RBC % 0.0 (0.0-0.2) % PT 13.1 (11.1-14.7) Seconds INR 1.0 APTT 25.5 (22.3-36.8) Seconds D-Dimer 0.44 (<0.48) ug/mL Sodium 142 (137-145) mmol/L Potassium 4.2 (3.4-5.0) mmol/L Chloride 107 (98-107) mmol/L Carbon Dioxide 26 (22-30) mmol/L Anion Gap 9 (4-12) mmol/L BUN 22 H (9-20) mg/dL Creatinine 1.25 (0.7-1.3) mg/dL Estim Creat Clear Calc 56 ml/min Estimated GFR 58 L (59 - ) Glucose 116 H (65-110) mg/dL Calcium 9.0 (8.4-10.2) mg/dL Total Bilirubin 0.7 (0.2-1.3) mg/dL AST 41 (17-59) U/L ALT 41 (6-50) U/L Alkaline Phosphatase 94 (38-126) U/L Troponin I < 0.012 (0.000-0.034) ng/mL Total Protein 7.0 (6.3-8.2) g/dL Albumin 4.1 (3.5-5.1) g/dL Lipase 84 (23-300) U/L <Carolin Schreiber PA-C - Last Filed: 06/28/24 19:09> Lab Results 06/28/24 Range/Units 09:52 WBC 9.9 (4.5-10.0) K/mm3 RBC 5.11 (4.6-6.20) M/mm3 Hgb 15.0 (14.0-18.0) g/dL Hct 44.4 (42.0-52.0) % MCV 86.9 (80-100) fl MCH 29.4 (26-34) pg MCHC 33.8 (32-36) g/dl RDW 13.2 (11.5-14.5) % Plt Count 174 (150-375) k/mm3 MPV 8.8 (7.4-10.4) fl Immature Gran % (Auto) 0.5 (0-0.5) % Neut % (Auto) 88.0 H (45.5-73.1) % Lymph % (Auto) 4.0 L (18.3-44.2) % [place] % (Auto) 5.2 (2.6-8.5) % Eos % (Auto) 2.2 (0-4.4) % Baso % (Auto) 0.1 L (0.2-1.2) % Lymph # (Auto) 0.40 L (0.9-3.2) K/mm3 [place] # (Auto) 0.5 (0.1-0.6) K/mm3 Eos # (Auto) 0.2 (0-0.3) K/mm3 Baso # (Auto) 0.0 (0.0-0.1) K/mm3 Abs Immat Gran (auto) 0.05 H (0.00-0.031) K/mm3 Absolute Neuts (auto) 8.7 H (1.3-6.7) K/mm3 Absolute Nucleated RBC 0.000 (0.0-0.012) K/mm3 Nucleated RBC % 0.0 (0.0-0.2) % PT 13.1 (11.1-14.7) Seconds INR 1.0 APTT 25.5 (22.3-36.8) Seconds D-Dimer 0.44 (<0.48) ug/mL Sodium 142 (137-145) mmol/L Potassium 4.2 (3.4-5.0) mmol/L Chloride 107 (98-107) mmol/L Carbon Dioxide 26 (22-30) mmol/L Anion Gap 9 (4-12) mmol/L BUN 22 H (9-20) mg/dL Creatinine 1.25 (0.7-1.3) mg/dL Estim Creat Clear Calc 56 ml/min Estimated GFR 58 L (59 - ) Glucose 116 H (65-110) mg/dL Calcium 9.0 (8.4-10.2) mg/dL Total Bilirubin 0.7 (0.2-1.3) mg/dL AST 41 (17-59) U/L ALT 41 (6-50) U/L Alkaline Phosphatase 94 (38-126) U/L Troponin I < 0.012 (0.000-0.034) ng/mL Total Protein 7.0 (6.3-8.2) g/dL Albumin 4.1 (3.5-5.1) g/dL Lipase 84 (23-300) U/L <Dillan Apodaca MD - Last Filed: 06/28/24 19:38> Imaging Data Radiologist's impression: ITS Impressions Chest X-Ray 06/28/24 10:29 IMPRESSION: 1. No acute cardiopulmonary disease. <Carolin Schreiber PA-C - Last Filed: 06/28/24 19:09> ECG Data EKG #1: ECG completion date: 06/28/24 <Carolin Schreiber PA-C - Last Filed: 06/28/24 19:09> EKG Interpretation: tachycardia, sinus rhythm, LBBB and no acute changes (compared to EKG 2020) <Carolin Schreiber PA-C - Last Filed: 06/28/24 19:09> Critical Care Time Critical Care Time Critical Care Time: No <Carolin Schreiber PA-C - Last Filed: 06/28/24 19:09> Discharge Plan Discharge Clinical Impression: Chest pain Qualifiers: Chest pain type: unspecified Qualified Code(s): R07.9 - Chest pain, unspecified <Carolin Schreiber PA-C - Last Filed: 06/28/24 19:09> Patient Disposition: Still a Patient <Carolin Schreiber PA-C - Last Filed: 06/28/24 19:09> Condition: Stable <Carolin Schreiber PA-C - Last Filed: 06/28/24 19:09> Quality HEART score for chest pain patients History: moderately suspicious <Carolin Schreiber PA-C - Last Filed: 06/28/24 19:09> ECG: non specific repolarization disturbance/LBTB/PM <Carolin Schreiber PA-C - Last Filed: 06/28/24 19:09> Age: > or = to 65 years <Carolin Schreiber PA-C - Last Filed: 06/28/24 19:09> Risk factors: > or = to 3 risk factors of atherosclerotic disease <Carolin Schreiber PA-C - Last Filed: 06/28/24 19:09> Troponin: < or = to 1x normal limit <Carolin Schreiber PA-C - Last Filed: 06/28/24 19:09> Heart score: 6 <Carolin Schreiber PA-C - Last Filed: 06/28/24 19:09> 6 <Dillan Apodaca MD - Last Filed: 06/28/24 19:38>
[2024-06-28 10:23] LABS: Troponin I < 0.012 ng/mL (0.000-0.034)
[2024-06-28 10:26] LABS: Prothrombin Time 13.1 Seconds (11.1-14.7)
[2024-06-28] MEDS: ONDANSETRON INJ 4 MG/2 ML VIAL IV PUSH ×2 (10:26→21:42)
[2024-06-28] MEDS: MORPHINE SULFATE (*CRX) 4 MG/ML INJ IV PUSH (10:26)
[2024-06-28 10:27] LABS: Partial Thromboplastin Time 25.5 Seconds (22.3-36.8)
[2024-06-28 11:08] LABS: D Dimer 0.44 ug/mL (<0.48)
--- NOTE | 2024-06-28 12:51 | ECG_ITS ---
Test Date: 2024-06-28 12:57:10 Measurements Intervals [place] Rate: 107 P: 41 [place]: 155 QRS: -10 QRSD: 138 T: 118 QT: 357 QTc: 478 Interpretive Statements SINUS TACHYCARDIA LEFT BUNDLE BRANCH BLOCK ABNORMAL ECG Compared to ECG 06/28/2024 09:42:17 No significant changes Electronically Signed On 06-28-2024 13:02:48 CHIEF ACCOUNTING OFFICER by Santos Kulkarni D.O.
--- NOTE | 2024-06-28 13:00 | P.HP_ITS ---
H&P: HPI History of Present Illness Date/Time: 06/28/24 13:00 Chief Complaint: Chest pain. Narrative: This is a very pleasant 69-year-old male hypertension, hyperlipidemia, chronic kidney disease stage 3, and gout who presented to the emergency department via private vehicle with complaints of chest pain. The patient provides the following history. He started a walking program last month and he has been walki ng 5 miles most days of the week. The last few times he has been out walking he has noticed pain in his left arm towards the end of the walk (from the shoulder to the elbow) which would persisted until he got home and rested for a brief period of time. This morning simply while lying in bed he developed pain that felt similar however it was situated more so in the left anterior chest with occasional radiation into the left shoulder associated with nausea. It did seem to be a bit worse with movement of the left shoulder. He syncope, near-syncope, sweats, vomiting, pleuritic pain, and shortness of breath. He has not had any recent falls or injuries and has no known shoulder pathology. In the ED: Vital signs on arrival include a temperature of 98.8?, blood pressure 120/86, pulse 112, respiratory rate 20, SpO2 100% on room air. Labs were significant for a BUN of 22, creatinine 1.25, glucose 116, troponin less than 0.012. Chest x-ray showed no acute cardiopulmonary disease. EKG showed sinus tachycardia with a left bundle branch block which is not a new finding. He was given morphine 4 mg IV and aspirin 324 mg p.o. and he is being admitted in this setting for close monitoring and Cardiology consultation. Review of Systems Review of Systems: 12 systems were reviewed and are negativ e except for as per HPI. [facility] Past Medical History Medical History Left bundle branch block Vitamin D deficiency Kidney stones Chronic kidney disease, stage 3 Benign essential hypertension Gout Overweight (BMI 25.0-29.9) Dyslipidemia Surgical History Surgical History History of lithotripsy History of cystoscopy History of colonoscopy with polypectomy (12/2023) Family History Family History Father Hypertension Dementia Sibling Hypertension Heart problem Social History Social History (Updated 06/28/24 @ 19:36 by Tracy Ocasio PA-C) Social History: Surrogate medical decision maker: Galilea Lewis, spouse. Code status: Full code. Smoking status: Never smoker Second hand tobacco smoke exposure: No Alcohol intake: never Substance use: never Substance use type: does not use Do You Feel Safe in your Home?: Yes Lack of Transportation: No Lack of Food: Never True Current Housing: I Have Housing Concerned About Future Housing: No Difficulty Paying Gas/Electric Bills: No Difficulty Paying for Meds: No Currently Unemployed: No Education: High School Diploma/GED Difficulty w/ Childcare or Family Care: No Living arrangements: with family Additional living arrangements comments: Lives with in [place]. Occupation/Education: occupation Additional occupation/education comments: Retired from working in IT at [employer] Spiritual care concerns: No Meds Home Medications and Allergies Home Medications ?Medication ?Instructions ?Recorded ?Confirmed ?Type simvastatin 20 mg tablet See Rx Instructions .Route 02/12/24 06/28/24 Rx .COMPLEX #90 tabs allopurinol 100 mg tablet 100 mg PO DAILY #90 tabs 05/03/24 06/28/24 Rx cholecalciferol (vitamin D3) 1,250 1,250 mcg PO WEEKLY #14 tabs 05/05/24 06/28/24 Rx mcg (50,000 unit) tablet ferrous sulfate 325 mg (65 mg 325 mg PO DAILY #90 tabs 05/05/24 06/28/24 Rx iron) tablet,delayed release losartan 50 mg tablet See Rx Instructions .Route 05/10/24 06/28/24 Rx .COMPLEX #90 tabs Allergies Allergy/AdvReac Type Severity Reaction Status Date / Time No Known Allergies Allergy Verified 06/28/24 10:01 Vital Signs Vital Signs - 24 hr 06/28/24 09:46 06/28/24 10:26 06/28/24 11:00 Temperature 98.8 F Pulse Rate 112 H 107 H 102 H Respiratory Rate 20 25 H 15 Blood Pressure 128/86 143/84 H 138/88 Pulse Oximetry 100 96 94 Oxygen Delivery Room Air 06/28/24 12:56 Temperature Pulse Rate 108 H Respiratory Rate 26 H Blood Pressure 133/88 Pulse Oximetry 94 Oxygen Delivery Exam Narrative: General: Well-developed male sitting up in bed in no acute distress. Weight: 100.5 kg. BMI: 30.0. HEENT: Normocephalic, atraumatic. PERRL, EOMI. Sclera anicteric. Oral mucosa moist. Oropharynx clear. Neck: Supple. Respiratory: Lungs are clear to auscultation bilaterally. Cardiovascular: Regular rate and rhythm with S1-S2. Chest: No tenderness to palpation over the chest wall. Mild tenderness to palpation over the top of the left shoulder. Gastrointestinal: Abdomen is soft, nontender, and nondistended with positive bowel sounds. Skin: Warm and dry. No rash or lesions on limited exam. Extremities: No cyanosis, clubbing, or edema. Radial and pedal pulses intact. Neurological: Alert. Cranial nerves 2-12 are grossly intact. No gross focal deficits to casual conversation. Psychiatric: Pleasant and cooperative with normal mood and affect. Judgment and insight intact. H&P: Results Labs Labs: Short CBC 06/28/24 Range/Units 09:52 WBC 9.9 (4.5-10.0) K/mm3 Hgb 15.0 (14.0-18.0) g/dL Hct 44.4 (42.0-52.0) % Plt Count 174 (150-375) k/mm3 BMP 06/28/24 09:52 Sodium 142 Potassium 4.2 Chloride 107 Carbon Dioxide 26 BUN 22 H Creatinine 1.25 Glucose 116 H Calcium 9.0 Cardiac Enzymes 06/28/24 Range/Units 09:52 Troponin I < 0.012 (0.000-0.034) ng/mL Liver Function 06/28/24 Range/Units 09:52 Total Bilirubin 0.7 (0.2-1.3) mg/dL AST 41 (17-59) U/L ALT 41 (6-50) U/L Alkaline Phosphatase 94 (38-126) U/L Albumin 4.1 (3.5-5.1) g/dL Assessment and Plan Assessment and plan (1) Chest pain: Code(s): R07.9 - Chest pain, unspecified Status: Acute (2) Left bundle branch block: Code(s): I44.7 - Left bundle-branch block, unspecified Status: Acute (3) Benign essential hypertension: Code(s): I10 - Essential (primary) hypertension Status: Acute (4) Chronic kidney disease, stage 3: Code(s): N18.30 - Chronic kidney disease, stage 3 unspecified Status: Acute (5) Dyslipidemia: Code(s): E78.5 - Hyperlipidemia, unspecified Status: Acute Plan The patient presented to the emergency department for evaluation of chest pain radiating to the left shoulder as detailed in HPI. Labs, imaging, EKG, and all reports were personally reviewed. Initial troponin was normal and EKG did not show any new changes but he does have a chronic left bundle-branch block dating back to at least 2020. PE is unlikely and history is not consistent with GI etiology. There could be a musculoskeletal component by history however given his risk factors, coronary artery disease needs to be ruled out. He is being admitted to the IMU in cardiology has been consulted. It is my understanding that plans are to take the patient to the labor representative. Blood pressures were reviewed and they have been stable. Renal function is stable compared to previous labs. His home medications will be reviewed and resumed as appropriate. Quality VTE Prophylaxis VTE prophylaxis: mechanical ordered The patient has been admitted under observation status. Hospitalist [facility] Advance Care Plan I have confirmed that the patient's Advanced Care Plan is present, code status is documented, or surrogate decision maker is listed in patient medical record.: Yes Medication Reconciliation I have utilized all available resources to obtain, update and review the patients current medications (includes all prescriptions, OTC, herbals, cannabis, and nutritional supplements).: Yes
[2024-06-28 13:42] LABS: Troponin I < 0.012 ng/mL (0.000-0.034)
--- NOTE | 2024-06-28 13:47 | ADMGEN ---
This patient, Jurgen Lewis, was admitted to Virtual Bed IMU-3. Patient/family oriented to hospital policies and general routines including ID bracelet, bed and alarms, visiting hours, pain management, procedures, bathroom and other care routines, personal items, smoking policy, room service/diet, and visiting hours. Information on how to activate the Rapid Response Team has been discussed. Patient/Family are encouraged to report perceived risks to care and to ask questions if they do not understand what they are told or what they should do.
--- NOTE | 2024-06-28 14:50 | P.CONCA_ITS ---
Assessment and Plan Assessment and plan (1) Chest pain: Code(s): R07.9 - Chest pain, unspecified Status: Acute (2) LBBB (left bundle branch block): Code(s): I44.7 - Left bundle-branch block, unspecified Status: Acute (3) Benign essential HTN: Code(s): I10 - Essential (primary) hypertension Status: Acute (4) Dyslipidemia: Code(s): E78.5 - Hyperlipidemia, unspecified Status: Acute Plan 69-year-old man with hypertension and hyperlipidemia presented with chest pain Chest pain -possibly unstable angina with persistent chest discomfort in setting of sinus tachycardia and left bundle branch block -aspirin 324 mg and would recommend left heart cardiac catheterization given persistent chest discomfort to define his coronary anatomy with possible PCI -start metoprolol tartrate 25 mg p.o. b.i.d. -which changes simvastatin to atorvastatin 40 mg every evening Hypertension -continue home meds Hyperlipidemia -continue atorvastatin 40 mg every evening History of Present Illness History of Present Illness Consult date/time: 06/28/24 14:50 Requesting physician: Tracy Ocasio PA-C Reason For Visit: chest pain Narrative: 69-year-old man with hypertension and hyperlipidemia presented with chest pain. He had left shoulder and arm pain with exertion such as ambulation that started on Friday. He developed the left shoulder/arm pain while ambulating his typical 5 mi walk daily and was able to push through and complete his 5 miles that day. When he would went home he sat down and rested and the shoulder/arm pain slowly resolved. This morning he woke up with left-sided chest discomfort that feels like a hard pain that continues to persist since 8:00 a.m. this morning. In the emergency room he was given morphine with some relief of his chest discomfort and he felt some lightheadedness while walking to and from the bathroom. Has the morphine wore off the chest discomfort returned. Denies any shortness of breath, orthopnea, syncope. He is usually an active person who walks 5 miles and plays golf. Review of Systems 2 Cardiovascular: Cardiovascular: Reports as per HPI Respiratory: Respiratory: Reports as per HPI [facility] Past Medical History Medical History (Updated 06/28/24 @ 14:17 by Tracy Ocasio PA-C) Left bundle branch block Vitamin D deficiency Kidney stones Chronic kidney disease, stage 3 Benign essential hypertension Gout Overweight (BMI 25.0-29.9) Dyslipidemia Surgical History Surgical History (Updated 06/28/24 @ 14:18 by Tracy Ocasio PA-C) History of lithotripsy History of cystoscopy History of colonoscopy with polypectomy (12/2023) Family History Family History Father Hypertension Dementia Sibling Hypertension Heart problem Social History Social History Social History: Smoking status: Never smoker Second hand tobacco smoke exposure: No Alcohol intake: never Substance use: never Substance use type: does not use Do You Feel Safe in your Home?: Yes Lack of Transportation: No Lack of Food: Never True Current Housing: I Have Housing Concerned About Future Housing: No Difficulty Paying Gas/Electric Bills: No Difficulty Paying for Meds: No Currently Unemployed: No Education: High School Diploma/GED Difficulty w/ Childcare or Family Care: No Living arrangements: with roommate(s) Additional living arrangements comments: Occupation/Education: occupation Gender identity (if verbalized by the patient): Male Sexual Orientation (if Verbalized by the Patient): Straight or Heterosexual Spiritual care concerns: No Meds Home Medications and Allergies Home Medications ?Medication ?Instructions ?Recorded ?Confirmed ?Type simvastatin 20 mg tablet See Rx Instructions .Route 02/12/24 06/28/24 Rx .COMPLEX #90 tabs allopurinol 100 mg tablet 100 mg PO DAILY #90 tabs 05/03/24 06/28/24 Rx cholecalciferol (vitamin D3) 1,250 1,250 mcg PO WEEKLY #14 tabs 05/05/24 06/28/24 Rx mcg (50,000 unit) tablet ferrous sulfate 325 mg (65 mg 325 mg PO DAILY #90 tabs 05/05/24 06/28/24 Rx iron) tablet,delayed release losartan 50 mg tablet See Rx Instructions .Route 05/10/24 06/28/24 Rx .COMPLEX #90 tabs Allergies Allergy/AdvReac Type Severity Reaction Status Date / Time No Known Allergies Allergy Verified 06/28/24 10:01 Vital Signs Vital Signs - 24 hr 06/28/24 09:46 06/28/24 10:26 06/28/24 11:00 Temperature 37.1 C Pulse Rate 112 H 107 H 102 H Respiratory Rate 20 25 H 15 Blood Pressure 128/86 143/84 H 138/88 Pulse Oximetry 100 96 94 Oxygen Delivery Room Air 06/28/24 12:56 Temperature Pulse Rate 108 H Respiratory Rate 26 H Blood Pressure 133/88 Pulse Oximetry 94 Oxygen Delivery Exam 2 Const: General: uncomfortable HENMT: Mouth: Yes moist mucous membranes Eyes: EOM: EOMs intact bilaterally Neck: Neck: no JVD Resp: Effort & Inspection: normal respiratory effort Auscultation: clear to auscultation bilaterally Cardio: Rate: tachycardic Rhythm: regular rhythm Extrem: General: no pedal edema Results Labs and Meds 06/28/24 09:52 06/28/24 09:52 Lab results: Cardiac Enzymes 06/28/24 06/28/24 Range/Units 09:52 12:58 AST 41 (17-59) U/L Troponin I < 0.012 < 0.012 (0.000-0.034) ng/mL Coagulation 06/28/24 Range/Units 09:52 PT 13.1 (11.1-14.7) Seconds APTT 25.5 (22.3-36.8) Seconds CBC 06/28/24 Range/Units 09:52 WBC 9.9 (4.5-10.0) K/mm3 RBC 5.11 (4.6-6.20) M/mm3 Hgb 15.0 (14.0-18.0) g/dL Hct 44.4 (42.0-52.0) % Plt Count 174 (150-375) k/mm3 Lymph # (Auto) 0.40 L (0.9-3.2) K/mm3 [place] # (Auto) 0.5 (0.1-0.6) K/mm3 Eos # (Auto) 0.2 (0-0.3) K/mm3 Baso # (Auto) 0.0 (0.0-0.1) K/mm3 Comprehensive Metabolic Panel 06/28/24 Range/Units 09:52 Sodium 142 (137-145) mmol/L Potassium 4.2 (3.4-5.0) mmol/L Chloride 107 (98-107) mmol/L Carbon Dioxide 26 (22-30) mmol/L BUN 22 H (9-20) mg/dL Creatinine 1.25 (0.7-1.3) mg/dL Glucose 116 H (65-110) mg/dL Calcium 9.0 (8.4-10.2) mg/dL AST 41 (17-59) U/L ALT 41 (6-50) U/L Alkaline Phosphatase 94 (38-126) U/L Total Protein 7.0 (6.3-8.2) g/dL Albumin 4.1 (3.5-5.1) g/dL Patient Weight 06/28/24 23:59 Weight 100.5 kg
--- NOTE | 2024-06-28 14:57 | WPDHPUPDATE1 ---
History and Physical Update Update Date/Time: 06/28/24 14:57 History and Physical has been reviewed, including an updated exam of the patient. There are NO changes in the patient's condition. Risks, benefits, and alternatives have been discussed and questions answered. Patient agrees to proceed with procedure.
--- NOTE | 2024-06-28 14:57 | WPDMODSED ---
Moderate Sedation Note-Pt Data Patient Data Allergies Allergy/AdvReac Type Severity Reaction Status Date / Time No Known Allergies Allergy Verified 06/28/24 10:01 Home Medications ?Medication ?Instructions ?Recorded ?Confirmed ?Type simvastatin 20 mg tablet See Rx Instructions .Route 02/12/24 06/28/24 Rx .COMPLEX #90 tabs allopurinol 100 mg tablet 100 mg PO DAILY #90 tabs 05/03/24 06/28/24 Rx cholecalciferol (vitamin D3) 1,250 1,250 mcg PO WEEKLY #14 tabs 05/05/24 06/28/24 Rx mcg (50,000 unit) tablet ferrous sulfate 325 mg (65 mg 325 mg PO DAILY #90 tabs 05/05/24 06/28/24 Rx iron) tablet,delayed release losartan 50 mg tablet See Rx Instructions .Route 05/10/24 06/28/24 Rx .COMPLEX #90 tabs Current Medications: Active Medications Aspirin (Aspirin 81 Mg Enteric Tablet) 81 mg PO QAM ONEIL Atorvastatin Calcium (Atorvastatin 40 Mg Tablet) 40 mg PO EVENING ONEIL Metoprolol Tartrate (Metoprolol Tartrate 25 Mg Tablet) 25 mg PO Q12HR ONEIL Nitroglycerin (Nitroglycerin Sl 0.4 Mg Tablet) 0.4 mg SUBLINGUAL Q5MIN PRN PRN Reason: Chest Pain Sedation/Anesthesia: No previous sedation/anesthesia problems (including family history). [facility] Past Medical History Medical History (Updated 06/28/24 @ 14:17 by Tracy Ocasio PA-C) Left bundle branch block Vitamin D deficiency Kidney stones Chronic kidney disease, stage 3 Benign essential hypertension Gout Overweight (BMI 25.0-29.9) Dyslipidemia Surgical History Surgical History (Updated 06/28/24 @ 14:18 by Tracy Ocasio PA-C) History of lithotripsy History of cystoscopy History of colonoscopy with polypectomy (12/2023) Family History Family History Father Hypertension Dementia Sibling Hypertension Heart problem Social History Social History Social History: Smoking status: Never smoker Second hand tobacco smoke exposure: No Alcohol intake: never Substance use: never Substance use type: does not use Do You Feel Safe in your Home?: Yes Lack of Transportation: No Lack of Food: Never True Current Housing: I Have Housing Concerned About Future Housing: No Difficulty Paying Gas/Electric Bills: No Difficulty Paying for Meds: No Currently Unemployed: No Education: High School Diploma/GED Difficulty w/ Childcare or Family Care: No Living arrangements: with roommate(s) Additional living arrangements comments: Occupation/Education: occupation Gender identity (if verbalized by the patient): Male Sexual Orientation (if Verbalized by the Patient): Straight or Heterosexual Spiritual care concerns: No Mod Sed Physical Exam Physical Exam Pre Procedural Exam: Normal: Lungs and Heart Rhythm and Variation: Heart Rate (tachycarda) Hours since solid foods: 16 Hours since liquid intake: 16 Mallampati Classification: class II Internal Medicine - PN: Obj Da Vital Signs Vital Signs: Vital Signs - 24 hr 06/28/24 09:46 06/28/24 10:26 06/28/24 11:00 Temperature 37.1 C Pulse Rate 112 H 107 H 102 H Respiratory Rate 20 25 H 15 Blood Pressure 128/86 143/84 H 138/88 Pulse Oximetry 100 96 94 Oxygen Delivery Room Air 06/28/24 12:56 Temperature Pulse Rate 108 H Respiratory Rate 26 H Blood Pressure 133/88 Pulse Oximetry 94 Oxygen Delivery Meds/Results Medications: Active Medications Generic Name Dose Route Start Last Admin Trade Name Freq PRN Reason Stop Dose Admin Aspirin 81 mg 06/29/24 09:00 Aspirin 81 Mg Enteric Tablet PO QAM [facility] Atorvastatin Calcium 40 mg 06/28/24 18:00 Atorvastatin 40 Mg Tablet PO EVENING ONEIL Metoprolol Tartrate 25 mg 06/28/24 21:00 Metoprolol Tartrate 25 Mg Tablet PO Q12HR [facility] Nitroglycerin 0.4 mg 06/28/24 11:48 Nitroglycerin Sl 0.4 Mg Tablet SUBLINGUAL Q5MIN PRN Chest Pain Radiology Results: ITS Impressions Chest X-Ray 06/28/24 10:29 IMPRESSION: 1. No acute cardiopulmonary disease. Labs 06/28/24 09:52 06/28/24 09:52 Labs: Laboratory Results - last 24 hr 06/28/24 06/28/24 09:52 12:58 WBC 9.9 RBC 5.11 Hgb 15.0 Hct 44.4 MCV 86.9 MCH 29.4 MCHC 33.8 RDW 13.2 Plt Count 174 MPV 8.8 Immature Gran % (Auto) 0.5 Neut % (Auto) 88.0 H Lymph % (Auto) 4.0 L [place] % (Auto) 5.2 Eos % (Auto) 2.2 Baso % (Auto) 0.1 L Lymph # (Auto) 0.40 L [place] # (Auto) 0.5 Eos # (Auto) 0.2 Baso # (Auto) 0.0 Abs Immat Gran (auto) 0.05 H Absolute Neuts (auto) 8.7 H Absolute Nucleated RBC 0.000 Nucleated RBC % 0.0 PT 13.1 INR 1.0 APTT 25.5 D-Dimer 0.44 Sodium 142 Potassium 4.2 Chloride 107 Carbon Dioxide 26 Anion Gap 9 BUN 22 H Creatinine 1.25 Estim Creat Clear Calc 56 Estimated GFR 58 L Glucose 116 H Calcium 9.0 Total Bilirubin 0.7 AST 41 ALT 41 Alkaline Phosphatase 94 Troponin I < 0.012 < 0.012 Total Protein 7.0 Albumin 4.1 Lipase 84 ASA Classification/Sedation ASA Classification/Sedation ASA Class: III Emergent: No Risks: Risks, benefits and alternatives explained and patient/family accepted plan for sedation. Patient re-evaluated immediately prior to sedation.
--- NOTE | 2024-06-28 15:58 | WPDCARDPROC ---
Cardiac Cath Procedure Note Date of procedure:: 06/28/24 Performing physician:: CATHETERIZATION LABORATORY REPORT Procedure Date: 06/28/2024 Referring Physician: KAI Shields Anesthesia: Versed and Fentanyl were ordered and given in my presence at 1537, procedure ended at 1554. Supervision of nurse, Lien Reid monitored moderate sedation with Versed and Fentanyl was provided for 17 minutes. Pre-op Diagnosis: Chest Pain Post-op Diagnosis: Chest Pain Procedure(s): Left heart catheterization with coronary angiography Access Site: Right radial artery Brief History and Clinical Indications: 69-year-old man with hypertension and dyslipidemia who presented with chest pain with concerns for unstable angina given persistent symptoms here to define his coronary anatomy with possible PCI. All risks, benefits and alternatives to left heart catheterization with or without percutaneous coronary intervention was discussed at length with the patient. Risk of complications including but not limited to bleeding, infection, arrhythmia, stroke, worsening kidney function, blood loss, groin hematoma, limb loss, emergency coronary artery bypass grafting, and even were discussed with the patient and all questions were answered. The patient understood and wished to proceed. Time out called, patient name, date of , medical record number, allergies, procedure performed, identify Tuber Machine Operator, patient and staff member concurred with accurate data, procedure carried on. Findings: LEFT HEART CATHETERIZATION FINDINGS: 1. Left main: The left main coronary artery is widely patent without any significant obstructive disease. 2. Left anterior descending: The LAD and the diagonal branches are free of any angiographic high-grade stenosis. The LAD begins to taper down into a small vessel in its midbody and becomes of 1-1.5mm vessel its distal body. 3. Left circumflex: The left circumflex artery and the main marginal branches are free of any angiographic high-grade stenosis. 4. Right coronary artery: The RCA is a large dominant vessel that is free of any angiographic high-grade stenosis. 5. Left ventricle: A. End-diastolic pressure 25 mmHg. B. LV gram shows preserved left ventricular systolic function. C. No significant gradient across aortic valve on catheter pullback. 6. Opening AO pressure 89/66 and closing AO pressure 88/68 Description of Procedure: Informed consent signed and placed in the chart. Patient transferred to curb and gutter laborer room. Prepped and draped in usual sterile fashion. 2% lidocaine injected subcutaneously in right wrist area. 22-gauge venipuncture catheter used to access the right radial artery with the Seldinger technique. 6-FR slender sheath placed in right radial artery. Nitroglycerin 200mcg, Verapamil 2.5mg, and Heparin 5000U was given intraarterial through the sheath. J wire advanced under fluoroscopy 5F TIG diagnostic catheter engaged Left Main Coronary Artery. 5F JR4 diagnostic catheter engaged Right Coronary Artery Multiple orthogonal angiogram obtained and reviewed 5F Pigtail diagnostic catheter crossed aortic valve to obtain LVEDP, LV angiogram performed Hemostasis was achieved by application of TR band. Assessment: No angiographic high-grade stenosis. Post Operative Condition: Stable No significant blood loss Disposition: Floor Plan: Recommend ruling out other acute causes of chest pain. Obtain a transthoracic echocardiogram. Riaz Gaytan Interventional Cardiology
[2024-06-28] MEDS: SODIUM CHLORIDE 0.9% IV 1,000 ML 125 ML IV CONT (16:34)
[2024-06-28] MEDS: ACETAMINOPHEN 500 MG TABLET 1000 MG PO (16:34)
[2024-06-28] MEDS: ACETAMINOPHEN 325 MG TABLET 650 MG PO (21:39)
[2024-06-29] VITALS (13 sets, daily range): BP systolic 109–141; BP diastolic 64–80; PULSE 86–97; RESP 18; TEMP 36.4–37; O2SAT 95–100
[2024-06-29 05:41] LABS: Anion Gap 9 mmol/L (4-12); Blood Urea Nitrogen 23 mg/dL (9-20); Carbon Dioxide 22 mmol/L (22-30); Chloride 105 mmol/L (98-107); Estimated CRCL calculation 57 ml/min; Estimated Glomerular Filt Rate 58; Glucose 114 mg/dL (65-110); Magnesium 1.7 mg/dL (1.6-2.3); Potassium 3.8 mmol/L (3.4-5.0); Sodium 136 mmol/L (137-145)
[2024-06-29] MEDS: ACETAMINOPHEN 325 MG TABLET 650 MG PO (08:32)
--- NOTE | 2024-06-29 09:36 | PM.IMPN ---
Progress Note: A&P Assessment and Plan (1) Chest pain: Code(s): R07.9 - Chest pain, unspecified Status: Acute (2) Left bundle branch block: Code(s): I44.7 - Left bundle-branch block, unspecified Status: Acute (3) Benign essential hypertension: Code(s): I10 - Essential (primary) hypertension Status: Acute (4) Chronic kidney disease, stage 3: Code(s): N18.30 - Chronic kidney disease, stage 3 unspecified Status: Acute (5) Dyslipidemia: Code(s): E78.5 - Hyperlipidemia, unspecified Status: Acute Plan Chest pain The patient presented to the emergency department for evaluation of chest pain radiating to the left shoulder Troponin negative initially EKG shows sinus rhythm no specific ST T-wave changes, patient has a chronic left bundle branch block Cardiac catheterization were performed, patient has a patent coronary artery Pending echocardiogram Continue aspirin 81 mg daily p.o., Lipitor 40 mg daily p.o., nitroglycerin sublingual p.r.n. Now patient has no chest pain Essential hypertension Continue home medication losartan 50 mg daily p.o. Subjective Date/time seen: 06/29/24 09:36 Interval history: I saw examined patient today, patient denies chest pain, palpitation, headache, focal weakness, vision change, slurred speech, abdomen pain, patient is afebrile, blood pressure stable Exam Narrative: GENERAL: Pleasant, in no acute distress. Well-nourished. - EYES: EOMI. Anicteric. - HENT: Moist mucous membranes. - LUNGS: Clear to auscultation bilaterally, no wheezing, rhonchi, or rales. - CARDIOVASCULAR: Regular rate and rhythm. No murmur. No JVD. - ABDOMEN: Soft, non-tender and non-distended. No palpable masses. - EXTREMITIES: No edema. Peripheral pulses 2+. Non-tender. No hematoma or bleeding from the right wrist at needle inserted inside - NEUROLOGIC: No focal neurological deficits. CN II-XII grossly intact. - PSYCHIATRIC: Awake, Alert and oriented x 3. Appropriate mood and affect. - SKIN: No rashes or lesions. Warm. - LYMPH: No cervical lymphadenopathy. Objective Data Vital Signs Vital Signs: Vital Signs - 24 hr 06/28/24 09:46 06/28/24 10:26 06/28/24 11:00 Temperature 98.8 F Pulse Rate 112 H 107 H 102 H Pulse Rate [Monitor] Respiratory Rate 20 25 H 15 Blood Pressure 128/86 143/84 H 138/88 Pulse Oximetry 100 96 94 Oxygen Delivery Room Air 06/28/24 12:56 06/28/24 16:10 06/28/24 16:10 Temperature Pulse Rate 108 H 105 H Pulse Rate [Monitor] 105 H Respiratory Rate 26 H 27 H Blood Pressure 133/88 107/66 Pulse Oximetry 94 97 Oxygen Delivery Room Air 06/28/24 16:30 06/28/24 16:30 06/28/24 16:45 Temperature Pulse Rate 109 H 108 H Pulse Rate [Monitor] 106 H Respiratory Rate 21 H 23 H Blood Pressure 106/73 121/74 Pulse Oximetry 97 98 Oxygen Delivery Room Air Room Air 06/28/24 16:45 06/28/24 17:00 06/28/24 17:00 Temperature Pulse Rate 108 H Pulse Rate [Monitor] 105 H 105 H Respiratory Rate 13 Blood Pressure 112/77 Pulse Oximetry 98 Oxygen Delivery Room Air 06/28/24 17:15 06/28/24 17:15 06/28/24 17:30 Temperature Pulse Rate 106 H Pulse Rate [Monitor] 106 H 102 H Respiratory Rate 19 Blood Pressure 105/84 Pulse Oximetry 95 Oxygen Delivery Room Air 06/28/24 17:30 06/28/24 17:45 06/28/24 17:45 Temperature Pulse Rate 102 H 100 Pulse Rate [Monitor] 102 H Respiratory Rate 18 20 Blood Pressure 96/66 L 106/80 Pulse Oximetry 96 97 Oxygen Delivery Room Air Room Air 06/28/24 18:00 06/28/24 18:00 06/28/24 18:15 Temperature Pulse Rate 98 97 Pulse Rate [Monitor] 97 Respiratory Rate 18 19 Blood Pressure 103/64 Pulse Oximetry 97 98 Oxygen Delivery Room Air Room Air 06/28/24 18:15 06/28/24 18:30 06/28/24 18:30 Temperature Pulse Rate 98 Pulse Rate [Monitor] 96 96 Respiratory Rate 20 Blood Pressure 112/61 Pulse Oximetry 97 Oxygen Delivery Room Air 06/28/24 18:45 06/28/24 18:45 06/28/24 19:00 Temperature Pulse Rate 96 96 Pulse Rate [Monitor] 96 Respiratory Rate 18 20 Blood Pressure 108/65 111/67 Pulse Oximetry 97 96 Oxygen Delivery Room Air Room Air 06/28/24 19:00 06/28/24 19:15 06/28/24 19:15 Temperature Pulse Rate 96 Pulse Rate [Monitor] 96 96 Respiratory Rate 18 Blood Pressure 124/64 Pulse Oximetry 98 Oxygen Delivery Room Air 06/28/24 19:47 06/28/24 20:00 06/28/24 20:00 Temperature 98.2 F 97.2 F L Pulse Rate 102 H 94 Pulse Rate [Monitor] Respiratory Rate 18 18 Blood Pressure 117/50 L 118/55 L Pulse Oximetry 93 95 Oxygen Delivery 06/28/24 21:00 06/28/24 22:00 06/28/24 22:00 Temperature 98.9 F Pulse Rate 101 H 100 97 Pulse Rate [Monitor] Respiratory Rate 18 Blood Pressure 116/63 108/56 L Pulse Oximetry 97 94 Oxygen Delivery 06/28/24 23:00 06/28/24 23:55 06/29/24 00:00 Temperature 98.5 F Pulse Rate 96 89 92 Pulse Rate [Monitor] Respiratory Rate 18 18 Blood Pressure 112/57 L 108/56 L Pulse Oximetry 94 97 Oxygen Delivery 06/29/24 01:00 06/29/24 02:00 06/29/24 03:58 Temperature 98.6 F Pulse Rate 97 89 89 Pulse Rate [Monitor] Respiratory Rate 18 18 Blood Pressure 109/64 118/67 Pulse Oximetry 95 95 Oxygen Delivery 06/29/24 04:00 06/29/24 06:00 06/29/24 08:00 Temperature 98.2 F Pulse Rate 90 92 93 Pulse Rate [Monitor] Respiratory Rate 18 Blood Pressure 137/69 Pulse Oximetry 95 Oxygen Delivery Intake/Output Intake/Output: Intake & Output 06/26/24 06/27/24 06/28/24 06/29/24 23:59 23:59 23:59 23:59 Intake Total 1240 Balance 1240 Meds/Results Medications: Active Medications Generic Name Dose Route Start Last Admin Trade Name Freq PRN Reason Stop Dose Admin Acetaminophen 650 mg 06/28/24 19:43 06/29/24 08:32 Acetaminophen 325 Mg Tablet PO 650 mg Q6H PRN Administration Mild Pain (1-3) or Fever Nitroglycerin 0.4 mg 06/28/24 11:48 Nitroglycerin Sl 0.4 Mg Tablet SUBLINGUAL Q5MIN PRN Chest Pain Ondansetron HCl 4 mg 06/28/24 21:17 06/28/24 21:42 Ondansetron Inj 4 Mg/2 Ml Vial IV PUSH 4 mg Q6H PRN Administration Nausea And Vomiting Perflutren Lipid Microsphere 0 ml 06/28/24 14:57 Perflutren Lipid Microspheres 1.5 Ml Vial Diluted To 10 Ml Total Volume IV PUSH 07/01/24 14:57 ONCE PRN adequate visualization Protocol Radiology Results: ITS Impressions Chest X-Ray 06/28/24 10:29 IMPRESSION: 1. No acute cardiopulmonary disease. Labs Labs: Laboratory Results - last 24 hr 06/28/24 06/28/24 06/29/24 09:52 12:58 04:52 WBC 9.9 RBC 5.11 Hgb 15.0 Hct 44.4 MCV 86.9 MCH 29.4 MCHC 33.8 RDW 13.2 Plt Count 174 MPV 8.8 Immature Gran % (Auto) 0.5 Neut % (Auto) 88.0 H Lymph % (Auto) 4.0 L [place] % (Auto) 5.2 Eos % (Auto) 2.2 Baso % (Auto) 0.1 L Lymph # (Auto) 0.40 L [place] # (Auto) 0.5 Eos # (Auto) 0.2 Baso # (Auto) 0.0 Abs Immat Gran (auto) 0.05 H Absolute Neuts (auto) 8.7 H Absolute Nucleated RBC 0.000 Nucleated RBC % 0.0 PT 13.1 INR 1.0 APTT 25.5 D-Dimer 0.44 Sodium 142 136 L Potassium 4.2 3.8 Chloride 107 105 Carbon Dioxide 26 22 Anion Gap 9 9 BUN 22 H 23 H Creatinine 1.25 1.24 Estim Creat Clear Calc 56 57 Estimated GFR 58 L 58 L Glucose 116 H 114 H Calcium 9.0 8.0 L Magnesium 1.7 Total Bilirubin 0.7 AST 41 ALT 41 Alkaline Phosphatase 94 Troponin I < 0.012 < 0.012 Total Protein 7.0 Albumin 4.1 Lipase 84
[2024-06-29] MEDS: LOSARTAN POTASSIUM 50 MG TABLET PO (11:40)
--- NOTE | 2024-06-29 14:57 | ECHO_ITS ---
Patient Info Name: Jurgen Lewis Age: 69 years : 1955 Gender: Male Ht: 72 in Wt: 221 lbs BSA: 2.28 m2 HR: 90 bpm BP: 118 / 67 mmHg Heart Rhythm: Sinus Rhythm Technical Quality: Fair Exam Date: 06/29/2024 9:38 AM Exam Location: Echo Lab Patient Status: Outpatient Admit Date: 06/28/2024 Staff Ordering Physician: Riaz Gaytan MD (allison/ileana) Diesel Instructor: Rose Chow RDCS Attending Provider: Alexis Hanson MD Exam Type: CA echo doppler color flow Study Info Indications - CHEST PAIN Complete two-dimensional, color flow and Doppler transthoracic echocardiogram is performed. Summary 1. Left ventricular chamber dimension is normal. 2. Left ventricular systolic function is normal, estimated at 50-55%. 3. There is mildly increased left ventricular wall thickness. 4. The left ventricular diastolic function is grade I diastolic dysfunction. 5. Right ventricular systolic function is normal. 6. There is mild mitral valve regurgitation. 7. There is mild tricuspid valve regurgitation. Left Ventricle Left ventricular chamber dimension is normal. Left ventricular systolic function is normal, estimated at 50-55%. There is mildly increased left ventricular wall thickness. The left ventricular diastolic function is grade I diastolic dysfunction. Right Ventricle Right ventricular chamber dimension is normal. Right ventricular systolic function is normal. Left Atria Left atrial chamber dimension is normal. Right Atria Right atrial chamber dimension is normal. Atrial Septum Intact interatrial septum visualized by color flow imaging. Aortic Valve The aortic valve is probable trileaflet. There is no aortic valve stenosis. There is no aortic valve regurgitation. Pulmonic Valve The pulmonic valve is not well visualized. There is no pulmonic regurgitation. Mitral Valve There is mild mitral valve regurgitation. Tricuspid Valve There is mild tricuspid valve regurgitation. Pericardium/Pleural There is no pericardial effusion. Inferior Vena Cava Inferior vena cava is not well visualized. Aorta The aortic root size at the sinus of Valsalva is normal. Left Ventricular Outflow Tract Name Value Normal LVOT 2D LVOT Diameter 2.1 cm LVOT Doppler LVOT Peak Gradient 4 mmHg LVOT Mean Gradient 3 mmHg LVOT VTI 19 cm LVOT VTI/AV VTI Ratio 0.6 LVOT Stroke Volume 66 ml LVOT CO 5.9 l/min LVOT CI 2.6 l/min/m2 Pulmonic Valve Name Value Normal RVOT Doppler RVOT Peak Gradient 3 mmHg PV Doppler PV Peak Gradient 3 mmHg Mitral Valve Name Value Normal MV Doppler MV Decel [place] 1,094 cm/s2 MV PHT 19 ms MV Area (PHT) 11.8 cm2 4.0-5.0 MV Diastolic Function MV E Peak Velocity 70 cm/s MV A Peak Velocity 99 cm/s MV E/A 0.7 MV Decel Time 64 ms MV Annular TDI MV E/e' (Septal) 8.7 <=8.0 MV E/e' (Lateral) 7.7 <=8.0 MV E/e' (Average) 8.2 Aorta Name Value Normal Ascending Aorta Ao Root Diameter (MM) 3.0 cm Ao Root Diam Index (MM) 1.3 cm/m2 Aortic Valve Name Value Normal AV Doppler AV Peak Velocity 148 cm/s AV Peak Gradient 9 mmHg AV Mean Gradient 6 mmHg AV VTI 30 cm AV Area (Cont Eq VTI) 2.2 cm2 >=3.0 AV Area (Cont Eq Ronen) 2.5 cm2 AV Regurgitation 2D LVOT Area 3.5 cm2 Ventricles Name Value Normal LV Dimensions 2D/MM IVS Diastolic Thickness (2D) 1.7 cm 0.6-1.0 LVID Diastole (2D) 4.7 cm 4.2-5.8 LVIW Diastolic Thickness (2D) 0.9 cm 0.6-1.0 LVID Systole (2D) 3.6 cm 2.5-4.0 LVOT Diameter 2.1 cm LV Mass (2D Cubed) 235.07 g 88.00-224.00 LV Mass Index (2D Cubed) 103 g/m2 49-115 Relative Wall Thickness (2D) 0.38 LV Fractional Shortening/Ejection Fraction 2D/MM LV Fractional Shortening (2D) 24 % 25-43 LV EF (2D Teicholz) 48 % 52-72 LV Diastolic Volume (4C MOD) 195 ml LV EF (4C MOD) 45 % LV Diastolic Volume (2C MOD) 128 ml LV EF (2C MOD) 52 % LV Diastolic Volume (BP MOD) 164 ml 62-150 LV Diastolic Volume Index (BP MOD) 72 ml/m2 34-74 LV Systolic Volume (BP MOD) 85 ml 21-61 LV Systolic Volume Index (BP MOD) 37 ml/m2 11-31 LV EF (BP MOD) 48 % 52-72 LV Diastolic Length (4C) 9.4 cm LV Systolic Length (4C) 8.2 cm LV Stroke Volume (4C MOD) 88 ml Atria Name Value Normal LA Dimensions LA Dimension (MM) 4.4 cm 3.0-4.1 LA Volume (4C A-L) 79 ml LA Volume (BP A-L) 77 ml RA Dimensions RA Area (4C) 15.3 cm2 <=18.0 Report Signatures
[2024-06-29 15:10] LABS: Toxigenic C. Diff NEGATIVE (NEGATIVE)
--- NOTE | 2024-06-29 15:31 | PM.PNCARD ---
Progress Note: A&P Assessment and Plan (1) Chest pain: Qualifiers: Chest pain type: unspecified Qualified Code(s): R07.9 - Chest pain, unspecified Code(s): R07.9 - Chest pain, unspecified Status: Acute Plan 1. Chest pain 2. Left bundle branch block 3. Hypertension 4. Hyperlipidemia PLAN: Cardiac cath without obstructive CAD. Echocardiogram with preserved LVEF, mild MR, mild TR Okay for discharge home from a cardiac standpoint. Will arrange follow up with Dr. Gaytan. Recommendations and plan discussed with Hospitalist. Subjective Date/time seen: 06/29/24 15:31 Interval history: Reason for visit: Chest pain Feeling well. No more chest pain. Review of Systems Cardiovascular: Cardiovascular: Reports as per HPI Exam Const: General: comfortable and no acute distress HENMT: Mouth: Yes moist mucous membranes Eyes: General: appearance normal, both eyes and all related structures Sclera: sclerae normal Resp: Effort & Inspection: normal respiratory effort Cardio: Rate: regular rate Rhythm: regular rhythm Skin: General skin exam: normal color Neuro: Speech: normal speech Psych: Mental Status: mental status grossly normal Affect: normal affect Objective Data Vital Signs Vital Signs: Vital Signs - 24 hr 06/28/24 16:10 06/28/24 16:10 06/28/24 16:30 Temperature Pulse Rate 105 H 109 H Pulse Rate [Monitor] 105 H Respiratory Rate 27 H 21 H Blood Pressure 107/66 106/73 Pulse Oximetry 97 97 Oxygen Delivery Room Air Room Air 06/28/24 16:30 06/28/24 16:45 06/28/24 16:45 Temperature Pulse Rate 108 H Pulse Rate [Monitor] 106 H 105 H Respiratory Rate 23 H Blood Pressure 121/74 Pulse Oximetry 98 Oxygen Delivery Room Air 06/28/24 17:00 06/28/24 17:00 06/28/24 17:15 Temperature Pulse Rate 108 H 106 H Pulse Rate [Monitor] 105 H Respiratory Rate 13 19 Blood Pressure 112/77 105/84 Pulse Oximetry 98 95 Oxygen Delivery Room Air Room Air 06/28/24 17:15 06/28/24 17:30 06/28/24 17:30 Temperature Pulse Rate 102 H Pulse Rate [Monitor] 106 H 102 H Respiratory Rate 18 Blood Pressure 96/66 L Pulse Oximetry 96 Oxygen Delivery Room Air 06/28/24 17:45 06/28/24 17:45 06/28/24 18:00 Temperature Pulse Rate 100 Pulse Rate [Monitor] 102 H 97 Respiratory Rate 20 Blood Pressure 106/80 Pulse Oximetry 97 Oxygen Delivery Room Air 06/28/24 18:00 06/28/24 18:15 06/28/24 18:15 Temperature Pulse Rate 98 97 Pulse Rate [Monitor] 96 Respiratory Rate 18 19 Blood Pressure 103/64 Pulse Oximetry 97 98 Oxygen Delivery Room Air Room Air 06/28/24 18:30 06/28/24 18:30 06/28/24 18:45 Temperature Pulse Rate 98 96 Pulse Rate [Monitor] 96 Respiratory Rate 20 18 Blood Pressure 112/61 108/65 Pulse Oximetry 97 97 Oxygen Delivery Room Air Room Air 06/28/24 18:45 06/28/24 19:00 06/28/24 19:00 Temperature Pulse Rate 96 Pulse Rate [Monitor] 96 96 Respiratory Rate 20 Blood Pressure 111/67 Pulse Oximetry 96 Oxygen Delivery Room Air 06/28/24 19:15 06/28/24 19:15 06/28/24 19:47 Temperature 36.8 C Pulse Rate 96 Pulse Rate [Monitor] 96 Respiratory Rate 18 18 Blood Pressure 124/64 117/50 L Pulse Oximetry 98 93 Oxygen Delivery Room Air 06/28/24 20:00 06/28/24 20:00 06/28/24 21:00 Temperature 36.2 C L 37.2 C Pulse Rate 102 H 94 101 H Pulse Rate [Monitor] Respiratory Rate 18 18 Blood Pressure 118/55 L 116/63 Pulse Oximetry 95 97 Oxygen Delivery 06/28/24 22:00 06/28/24 22:00 06/28/24 23:00 Temperature Pulse Rate 100 97 96 Pulse Rate [Monitor] Respiratory Rate 18 Blood Pressure 108/56 L 112/57 L Pulse Oximetry 94 94 Oxygen Delivery 06/28/24 23:55 06/29/24 00:00 06/29/24 01:00 Temperature 36.9 C Pulse Rate 89 92 97 Pulse Rate [Monitor] Respiratory Rate 18 18 Blood Pressure 108/56 L 109/64 Pulse Oximetry 97 95 Oxygen Delivery 06/29/24 02:00 06/29/24 03:58 06/29/24 04:00 Temperature 37.0 C Pulse Rate 89 89 90 Pulse Rate [Monitor] Respiratory Rate 18 Blood Pressure 118/67 Pulse Oximetry 95 Oxygen Delivery 06/29/24 06:00 06/29/24 08:00 06/29/24 08:00 Temperature 36.8 C Pulse Rate 92 93 Pulse Rate [Monitor] Respiratory Rate 18 Blood Pressure 137/69 Pulse Oximetry 95 Oxygen Delivery Room Air 06/29/24 11:21 06/29/24 12:00 Temperature 36.4 C Pulse Rate 87 Pulse Rate [Monitor] Respiratory Rate 18 Blood Pressure 132/77 Pulse Oximetry 97 Oxygen Delivery Room Air Intake/Output Intake/Output: Intake & Output 06/26/24 06/27/24 06/28/24 06/29/24 23:59 23:59 23:59 23:59 Intake Total 1480 Balance 1480 Meds/Results Medications: Active Medications Generic Name Dose Route Start Last Admin Trade Name Freq PRN Reason Stop Dose Admin Acetaminophen 650 mg 06/28/24 19:43 06/29/24 08:32 Acetaminophen 325 Mg Tablet PO 650 mg Q6H PRN Administration Mild Pain (1-3) or Fever Losartan Potassium 50 mg 06/29/24 11:00 06/29/24 11:40 Losartan Potassium 50 Mg Tablet PO 50 mg DAILY ONEIL Administration Nitroglycerin 0.4 mg 06/28/24 11:48 Nitroglycerin Sl 0.4 Mg Tablet SUBLINGUAL Q5MIN PRN Chest Pain Ondansetron HCl 4 mg 06/28/24 21:17 06/28/24 21:42 Ondansetron Inj 4 Mg/2 Ml Vial IV PUSH 4 mg Q6H PRN Administration Nausea And Vomiting Perflutren Lipid Microsphere 0 ml 06/28/24 14:57 Perflutren Lipid Microspheres 1.5 Ml Vial Diluted To 10 Ml Total Volume IV PUSH 07/01/24 14:57 ONCE PRN adequate visualization Protocol Radiology Results: ITS Impressions Chest X-Ray 06/28/24 10:29 IMPRESSION: 1. No acute cardiopulmonary disease. Labs Labs: Laboratory Results - last 24 hr 06/29/24 06/29/24 04:52 13:45 Sodium 136 L Potassium 3.8 Chloride 105 Carbon Dioxide 22 Anion Gap 9 BUN 23 H Creatinine 1.24 Estim Creat Clear Calc 57 Estimated GFR 58 L Glucose 114 H Calcium 8.0 L Magnesium 1.7 C. difficile (PCR) Negative
--- NOTE | 2024-06-29 17:31 | P.DS_ITS ---
DS: Admitting Diagnosis Discharge Date 06/29 Admitting Diagnosis (1) Chest pain: Code(s): R07.9 - Chest pain, unspecified Status: Acute (2) Left bundle branch block: Code(s): I44.7 - Left bundle-branch block, unspecified Status: Acute (3) Benign essential hypertension: Code(s): I10 - Essential (primary) hypertension Status: Acute (4) Chronic kidney disease, stage 3: Code(s): N18.30 - Chronic kidney disease, stage 3 unspecified Status: Acute (5) Dyslipidemia: Code(s): E78.5 - Hyperlipidemia, unspecified Status: Acute DS: Discharge Diagnosis Discharge Diagnosis (1) Chest pain: Code(s): R07.9 - Chest pain, unspecified Status: Acute (2) Left bundle branch block: Code(s): I44.7 - Left bundle-branch block, unspecified Status: Acute (3) Benign essential hypertension: Code(s): I10 - Essential (primary) hypertension Status: Acute (4) Chronic kidney disease, stage 3: Code(s): N18.30 - Chronic kidney disease, stage 3 unspecified Status: Acute (5) Dyslipidemia: Code(s): E78.5 - Hyperlipidemia, unspecified Status: Acute DS: Summary Hospital Course Hospital Course: This is a very pleasant 69-year-old male hypertension, hyperlipidemia, chronic kidney disease stage 3, and gout who presented to the emergency department via private vehicle with complaints of chest pain. The patient provides the following history. He started a walking program last month and he has been walking 5 miles most days of the week. The last few times he has been out walking he has noticed pain in his left arm towards the end of the walk (from the shoulder to the elbow) which would persisted until he got home and rested for a brief period of time. This morning simply while lying in bed he developed pain that felt similar however it was situated more so in the left anterior chest with occasional radiation into the left shoulder associated with nausea. It did seem to be a bit worse with movement of the left shoulder. He syncope, near-syncope, sweats, vomiting, pleuritic pain, and shortness of breath. He has not had any recent falls or injuries and has no known shoulder pathology. In the ED: Vital signs on arrival include a temperature of 98.8?, blood pressure 120/86, pulse 112, respiratory rate 20, SpO2 100% on room air. Labs were significant for a BUN of 22, creatinine 1.25, glucose 116, troponin less than 0.012. Chest x-ray showed no acute cardiopulmonary disease. EKG showed sinus ta chycardia with a left bundle branch block which is not a new finding. He was given morphine 4 mg IV and aspirin 324 mg p.o. and he is being admitted in this setting for close monitoring and Cardiology consultation. The following med issues have been addressed during hospitalization Chest pain The patient presented to the emergency department for evaluation of chest pain radiating to the left shoulder Troponin negative initially EKG shows sinus rhythm no specific ST T-wave changes, patient has a chronic left bundle branch block Cardiac catheterization were performed, patient has a patent coronary artery echocardiogram 1. Left ventricular chamber dimension is normal. 2. Left ventricular systolic function is normal, estimated at 50-55%. 3. There is mildly increased left ventricular wall thickness. 4. The left ventricular diastolic function is grade I diastolic dysfunction. 5. Right ventricular systolic function is normal. 6. There is mild mitral valve regurgitation. 7. There is mild tricuspid valve regurgitation. Continue aspirin 81 mg daily p.o., Lipitor 40 mg daily p.o., nitroglycerin sublingual p.r.n. Now patient has no chest pain Essential hypertension Continue home medication losartan 50 mg daily p.o. Time Spent with Patient Time attestation: Total time spent providing and/or coordinating discharge services: Exam Narrative: GENERAL: Pleasant, in no acute distress. Well-nourished. - EYES: EOMI. Anicteric. - HENT: Moist mucous membranes. - LUNGS: Clear to auscultation bilateral ly, no wheezing, rhonchi, or rales. - CARDIOVASCULAR: Regular rate and rhyth m. No murmur. No JVD. - ABDOMEN: Soft, non-tender and non-dist ended. No palpable masses. - EXTREMITIES: No edema. Peripheral puls es 2+. Non-tender. No hematoma or bleeding from the right wrist at needle inserted inside - NEUROLOGIC: No focal neurological defi cits. CN II-XII grossly intact. - PSYCHIATRIC: Awake, Alert and oriented x 3. Appropriate mood and affect. - SKIN: No rashes or lesions. Warm. - LYMPH: No cervical lymphadenopathy. DS: Data Data Completed and Pending Labs on day of discharge: Labs from last 24 hours 06/29/24 06/29/24 13:45 04:52 Sodium 136 L Potassium 3.8 Chloride 105 Carbon Dioxide 22 Anion Gap 9 BUN 23 H Creatinine 1.24 Estim Creat Clear Calc 57 Estimated GFR 58 L Glucose 114 H Calcium 8.0 L Magnesium 1.7 C. difficile (PCR) Negative Discharge Plan Discharge Attending physician on discharge: Kennedy Low Consulting providers: Riaz Gaytan; Dillan Apodaca; Tracy Ocasio Rafe M.; Julissa Cabezas; Abrahan Millan Discharging Clinician: Kennedy Low Anticipated Discharge Date/Time: 06/29/24 17:29 Patient Disposition: Home, Self-Care Activity: as tolerated Diet: as tolerated and heart healthy Discharge Instructions: No driving for 24 hours. No lifting, pushing or pulling more than 5 pounds for 1 week. No strenuous exercise or activity for 1 week. May shower but no tub baths or swimming pool for 1 week. Avoid commercial hot tubs. They are too hot. Keep site covered for 3 days. Observe for redness, drainage, swelling or bleeding. Patient Instructions: Antibiotic Form Patient Language: Romansh Stand Alone Forms: General Discharge Information Follow-up/Referrals: Ye Tavarez MD [Primary Care Provider] - (see PCP in one week ) Riaz Gaytan MD [Physician] - (see hospice office coordinator at scheduled appt ) Discharge Medications: Continued simvastatin 20 mg tablet See Rx Instructions .ROUTE .COMPLEX Qty: 90 1RF Dose Instruction: TAKE 1 TABLET BY MOUTH DAILY Rx Instructions: TAKE 1 TABLET BY MOUTH DAILY allopurinol 100 mg tablet 100 mg PO DAILY Qty: 90 1RF cholecalciferol (vitamin D3) 1,250 mcg (50,000 unit) tablet 1,250 mcg PO WEEKLY Qty: 14 1RF ferrous sulfate 325 mg (65 mg iron) tablet,delayed release (DR/EC) 325 mg PO DAILY Qty: 90 1RF losartan 50 mg tablet See Rx Instructions .ROUTE .COMPLEX Qty: 90 0RF Dose Instruction: TAKE 1 TABLET BY MOUTH DAILY Rx Instructions: TAKE 1 TABLET BY MOUTH DAILY Date of admission: 06/28/24 11:50 Primary Care Provider: Ye Tavarez Admitting Provider: Alexis Hanson Attending physician on admission: Kennedy Low Condition: Stable
== END 2024-06-29 18:03 | disposition home or self-care (01) ==
LOC: ANHED 10:10 → ANHIMU 14:55
PROVIDERS: Emergency Medicine; Internal Medicine; Physician Assistant; Admitting Provider Internal Medicine; Emergency Provider Physician Assistant; PCP Family Medicine; Visit Provider Hospitalist
PROC: 4A023N7 Measurement of Cardiac Sampling and Pressure, Left Heart, Percutaneous Approach (ICD-10-PCS; CPT 93452; principal; 2024-06-28 15:00)
DX: R07.9 Chest pain, unspecified (principal); I44.7 Left bundle-branch block, unspecified; I12.9 Hypertensive chronic kidney disease with stage 1 through stage 4 chronic kidney disease, or unspecified chronic kidney disease; N18.30 Chronic kidney disease, stage 3 unspecified; E78.5 Hyperlipidemia, unspecified; M10.9 Gout, unspecified; Z79.899 Other long term (current) drug therapy
CPT/HCPCS: 36415; 71046; 80048; 80053; 83690; 83735; 84484; 85025; 85380; 85610; 85730; 87493; 93005; 93306; 93458; 96374; 96375; 99285; A9270; C1769; C1887; C1894; G0378; J1644; J2003; J2250; J2270; J2305; J2405; J3010; J7030; J7040